=== PATIENT | male | born 1985 | race Caucasian/White ===

== ENCOUNTER 2019-12-11 14:50 | Outpatient (REF) | payer MEDICARE, MEDICAID, SELFPAY ==
[2019-12-11 16:29] LABS: Free T4 (Free Thyroxine) 1.37 ng/dL (0.71-1.85); Thyroid Stimulating Hormone 0.03 mIU/mL (0.32-4.0)
== END 2019-12-11 14:51 | disposition home or self-care (01) ==
LOC: HO.LAB 14:50
PROVIDERS: PCP Family Medicine; Visit Provider Internal Medicine Endocrinology, Diabetes & Metabolism
DX: E03.8 Other specified hypothyroidism (principal)
CPT/HCPCS: 84439; 84443

== ENCOUNTER 2019-12-27 13:27 | Outpatient (REF) | payer MEDICARE, MEDICAID, SELFPAY ==
[2019-12-27 16:05] LABS: Free T4 (Free Thyroxine) 1.39 ng/dL (0.71-1.85); Thyroid Stimulating Hormone 0.01 uIU/mL (0.32-4.0)
[2019-12-28 10:52] LABS: Triiodothyronine T3 Total 111 ng/dL (76-181)
[2019-12-31 15:02] LABS: Thyrotropin Receptor Antibody 10.96 IU/L (<=2.00)
[2020-01-01 15:07] LABS: Thyroid Stimulating Immunoglob 399 % baseline (<140)
== END 2019-12-27 13:28 | disposition home or self-care (01) ==
LOC: HO.LAB 13:27
PROVIDERS: PCP Family Medicine; Visit Provider Internal Medicine Endocrinology, Diabetes & Metabolism
DX: E06.3 Autoimmune thyroiditis (principal)
CPT/HCPCS: 36415; 83520; 84439; 84443; 84445; 84480

== ENCOUNTER 2020-01-23 10:01 | Outpatient (REF) | payer MEDICARE, MEDICAID, SELFPAY ==
[2020-01-23 14:51] LABS: Free T4 (Free Thyroxine) 0.77 ng/dL (0.71-1.85); Thyroid Stimulating Hormone 2.06 uIU/mL (0.32-4.0)
[2020-01-25 01:42] LABS: Triiodothyronine T3 Total 107 ng/dL (76-181)
== END 2020-01-23 10:02 | disposition home or self-care (01) ==
LOC: HO.LAB 10:01
PROVIDERS: PCP Family Medicine; Visit Provider Internal Medicine Endocrinology, Diabetes & Metabolism
DX: E06.2 Chronic thyroiditis with transient thyrotoxicosis (principal)
CPT/HCPCS: 84439; 84443; 84480

== ENCOUNTER → 2020-01-24 13:55 | Outpatient (BNVA) | payer MEDICARE, MEDICAID, SELFPAY | PROVIDERS: PCP Family Medicine; Visit Provider Internal Medicine Endocrinology, Diabetes & Metabolism | DX: E06.3 Autoimmune thyroiditis (principal); E05.00 Thyrotoxicosis with diffuse goiter without thyrotoxic crisis or storm; E55.9 Vitamin D deficiency, unspecified | CPT/HCPCS: 99212 ==

== ENCOUNTER 2020-03-04 11:37 | Outpatient (REF) | payer MEDICARE, MEDICAID, SELFPAY ==
[2020-03-04 13:17] LABS: Free T4 (Free Thyroxine) 0.88 ng/dL (0.71-1.85); Thyroid Stimulating Hormone 1.43 uIU/mL (0.32-4.0)
[2020-03-05 06:17] LABS: Triiodothyronine T3 Total 107 ng/dL (76-181)
[2020-03-09 13:03] LABS: FT4 by Equilib. Dialysis 1.1 ng/dL (0.9-2.2)
== END 2020-03-04 11:38 | disposition home or self-care (01) ==
LOC: HO.LAB 11:37
PROVIDERS: PCP Family Medicine; Visit Provider Internal Medicine Endocrinology, Diabetes & Metabolism
DX: E05.00 Thyrotoxicosis with diffuse goiter without thyrotoxic crisis or storm (principal)
CPT/HCPCS: 36415; 84439; 84443; 84480

== ENCOUNTER 2020-03-16 10:10 | Outpatient (REF) | payer MEDICARE, MEDICAID, SELFPAY | END 2020-03-16 10:11 | disposition home or self-care (01) | LOC: HO.LAB 10:10 | PROVIDERS: PCP Family Medicine; Visit Provider Internal Medicine | DX: Z20.822 Contact with and (suspected) exposure to COVID-19 (principal) | CPT/HCPCS: 36415; C9803; U0003 ==

== ENCOUNTER 2020-05-08 10:12 | Outpatient (REF) | payer MEDICARE, MEDICAID, SELFPAY ==
[2020-05-08 11:45] LABS: Free T4 (Free Thyroxine) 1.07 ng/dL (0.71-1.85); Thyroid Stimulating Hormone 0.15 uIU/mL (0.32-4.0)
[2020-05-09 05:51] LABS: Triiodothyronine T3 Total 105 ng/dL (76-181)
== END 2020-05-08 10:13 | disposition home or self-care (01) ==
LOC: HO.LAB 10:12
PROVIDERS: PCP Family Medicine; Visit Provider Internal Medicine Endocrinology, Diabetes & Metabolism
DX: E06.3 Autoimmune thyroiditis (principal)
CPT/HCPCS: 36415; 84439; 84443; 84480

== ENCOUNTER 2020-07-07 13:58 | Outpatient (REF) | payer MEDICARE, MEDICAID, SELFPAY ==
[2020-07-07 15:57] LABS: Free T4 (Free Thyroxine) 0.96 ng/dL (0.71-1.85); Thyroid Stimulating Hormone 0.12 uIU/mL (0.32-4.0)
[2020-07-08 12:11] LABS: Triiodothyronine T3 Total 104 ng/dL (76-181)
== END 2020-07-07 13:59 | disposition home or self-care (01) ==
LOC: HO.LAB 13:58
PROVIDERS: PCP Family Medicine; Visit Provider Internal Medicine Endocrinology, Diabetes & Metabolism
DX: E05.00 Thyrotoxicosis with diffuse goiter without thyrotoxic crisis or storm (principal); E06.3 Autoimmune thyroiditis; E55.9 Vitamin D deficiency, unspecified; Q90.9 Down syndrome, unspecified; C62.92 Malignant neoplasm of left testis, unspecified whether descended or undescended; Z90.79 Acquired absence of other genital organ(s); Z79.899 Other long term (current) drug therapy
CPT/HCPCS: 36415; 84439; 84443; 84480; 99212

== ENCOUNTER → 2020-07-29 09:08 | Outpatient (REF) | payer MEDICARE, MEDICAID, SELFPAY ==
--- NOTE | ~2020-07-29 | NM_ITS ---
EXAMINATION: NM THYROID UPTAKE AND SCAN CLINICAL INFORMATION: Diffuse goiter with thyrotoxicosis. COMPARISON: Thyroid uptake and scan 02/07/2013 TECHNIQUE: Following the oral administration of 89 microcuries of I-123 sodium iodide, thyroid uptake was performed and expressed as a percentage of the administrated dose. Gamma scintillation camera images of the thyroid in the anterior and right and left anterior oblique views were obtained using a pinhole collimator following the administration of 10 mCi Tc-99m pertechnetate. FINDINGS: The uptake is 19.3% at 4 hours and 46.3% at 24 hours. On thyroid scan, there is normal symmetric isotope activity seen in mildly enlarged thyroid lobes. No visible nodule, defect or enlargement seen. NM/NM thyroid w uptake IMPRESSION: Mildly enlarged thyroid gland but normal technetium uptake. Mild increased RAIU uptake measuring 19.3% at 4 hours and 46.3% at 24 hours. On previous exam 02/07/2013, the 4 hour RAIU was 36.9% and 24-hour RAIU uptake was 51.2%. It has improved.
== END ==
LOC: HO.NUCMED 09:08
PROVIDERS: PCP Family Medicine; Visit Provider Internal Medicine Endocrinology, Diabetes & Metabolism
DX: E05.00 Thyrotoxicosis with diffuse goiter without thyrotoxic crisis or storm (principal)
CPT/HCPCS: 78014; A9512; A9516

== ENCOUNTER → 2020-08-13 11:18 | Outpatient (REF) | payer MEDICARE, MEDICAID, SELFPAY ==
--- NOTE | ~2020-08-13 | NM_ITS ---
EXAMINATION: NM THERAPY I-131 CLINICAL INFORMATION: E05.00 - Thyrotoxicosis with diffuse goiter COMPARISON: Nuclear thyroid uptake and scan 07/29/2020 PROCEDURE: Patient identification performed and verified. Patient and family education performed and questions answered. Patient received oral 10.5 mCi iodine-131 in a single capsule at 1140 hours based on dose calculated by Dr. French Galvan. Patient is to follow up with Dr. French Galvan. NM/NM hyperthyroid therapy IMPRESSION: Status post oral radionuclide I-131 therapy, 10.5 mCi.
== END ==
LOC: HO.NUCMED 11:18
PROVIDERS: Visit Provider Internal Medicine Endocrinology, Diabetes & Metabolism
DX: E05.00 Thyrotoxicosis with diffuse goiter without thyrotoxic crisis or storm (principal)
CPT/HCPCS: 79005; A9517

== ENCOUNTER 2020-09-01 12:51 | Outpatient (REF) | payer MEDICARE, MEDICAID, SELFPAY ==
[2020-09-01 14:14] LABS: Free T4 (Free Thyroxine) 1.07 ng/dL (0.71-1.85); Thyroid Stimulating Hormone 0.11 uIU/mL (0.32-4.0)
[2020-09-03 02:42] LABS: Triiodothyronine T3 Total 132 ng/dL (76-181)
== END 2020-09-01 12:52 | disposition home or self-care (01) ==
LOC: HO.LAB 12:51
PROVIDERS: PCP Family Medicine; Visit Provider Internal Medicine Endocrinology, Diabetes & Metabolism
DX: E05.00 Thyrotoxicosis with diffuse goiter without thyrotoxic crisis or storm (principal)
CPT/HCPCS: 36415; 84439; 84443; 84480

== ENCOUNTER 2020-11-02 14:27 | Outpatient (REF) | payer MEDICARE, MEDICAID, SELFPAY ==
[2020-11-02 16:08] LABS: Free T4 (Free Thyroxine) < 0.40 ng/dL (0.71-1.85); Vitamin D 25-OH Total 25.9 ng/mL (>30)
[2020-11-02 19:47] LABS: Thyroid Stimulating Hormone > 100.00 uIU/mL (0.32-4.0)
[2020-11-03 15:21] LABS: Triiodothyronine T3 Total <25 ng/dL (76-181)
== END 2020-11-02 14:28 | disposition home or self-care (01) ==
LOC: HO.LAB 14:27
PROVIDERS: PCP Family Medicine; Referring Provider Family Medicine; Visit Provider Internal Medicine
DX: E05.00 Thyrotoxicosis with diffuse goiter without thyrotoxic crisis or storm (principal); E55.9 Vitamin D deficiency, unspecified
CPT/HCPCS: 36415; 82306; 84439; 84443; 84480

== ENCOUNTER → 2020-11-04 13:38 | Outpatient (BNVA) | payer MEDICARE, MEDICAID, SELFPAY | PROVIDERS: PCP Family Medicine; Visit Provider Internal Medicine | DX: E89.0 Postprocedural hypothyroidism (principal); E55.9 Vitamin D deficiency, unspecified; E05.00 Thyrotoxicosis with diffuse goiter without thyrotoxic crisis or storm | CPT/HCPCS: 99212 ==

== ENCOUNTER 2020-12-10 13:26 | Outpatient (REF) | payer MEDICARE, MEDICAID, SELFPAY ==
--- NOTE | ~2020-12-10 | US_ITS ---
EXAMINATION: US THYROID CLINICAL INFORMATION: Hypothyroidism. Graves' disease. Theodora's thyroiditis COMPARISON: Nuclear medicine thyroid scan with uptake 07/30/2020 TECHNIQUE: Linear transducer cottrell-scale and color Doppler examination with attention to the region of the thyroid. FINDINGS: SIZE: Measurements of the thyroid lobes and nodules are given in sagittal, anteroposterior and transverse dimensions respectively. Right Thyroid Lobe: 3.6 x 1 x 1.1 cm, volume 2.0 mL. Parenchyma: The gland echotexture is homogeneous. Thyroid vascularity is normal. Left Thyroid Lobe: 3.3 x 1.1 x 1.1 cm, volume 2.0 mL. Parenchyma: The gland echotexture is homogeneous. Thyroid vascularity is normal. Isthmus: 0.24 cm in maximum AP dimension. No focal thyroid nodule is seen. NODES: There is a right cervical lymph node adjacent to the thyroid gland. Appears diffusely hypoechoic with loss of echogenic fatty hilum. This demonstrates central hilar flow. This is slightly enlarged and measures 1.5 x 0.6 x 1.4 cm in sagittal, AP and transverse dimension. US/US thyroid IMPRESSION: Small thyroid gland. No nodule seen. Slightly enlarged abnormal appearing right cervical lymph node adjacent to the thyroid gland with loss of normal fatty hilum.
== END 2020-12-10 13:27 | disposition home or self-care (01) ==
LOC: HO.US 13:26
PROVIDERS: PCP Family Medicine; Visit Provider Internal Medicine
DX: E06.3 Autoimmune thyroiditis (principal)
CPT/HCPCS: 76536

== ENCOUNTER 2020-12-18 11:08 | Outpatient (REF) | payer MEDICARE, MEDICAID, SELFPAY ==
[2020-12-18 12:28] LABS: Albumin Level 4.3 g/dL (3.5-5.0); Phosphorus 4.1 mg/dL (2.7-4.5)
[2020-12-18 12:55] LABS: Free T4 (Free Thyroxine) 0.92 ng/dL (0.71-1.85); Thyroid Stimulating Hormone 51.87 uIU/mL (0.32-4.0); Vitamin D 25-OH Total 28.2 ng/mL (>30)
[2020-12-21 14:31] LABS: Calcium (PTHI) 9.4 mg/dL (8.6-10.3); PTHI 25 pg/mL (14-64)
[2020-12-23 01:51] LABS: Thyroglobulin Antibodies 17 IU/mL (< or = 1); Thyroid Peroxidase Antibodies >900 IU/mL (<9)
[2020-12-23 16:12] LABS: Thyroid Stimulating Immunoglob 297 % baseline (<140)
[2020-12-24 14:35] LABS: Thyrotropin Receptor Antibody 7.79 IU/L (<=2.00)
== END 2020-12-18 11:09 | disposition home or self-care (01) ==
LOC: HO.LAB 11:08
PROVIDERS: PCP Family Medicine; Visit Provider Internal Medicine
DX: E06.3 Autoimmune thyroiditis (principal); E55.9 Vitamin D deficiency, unspecified; E89.0 Postprocedural hypothyroidism
CPT/HCPCS: 36415; 82040; 82306; 83520; 83970; 84100; 84439; 84443; 84445; 86376; 86800

== ENCOUNTER 2021-01-29 10:59 | Outpatient (REF) | payer MEDICARE, MEDICAID, SELFPAY ==
[2021-01-29 12:30] LABS: Free T4 (Free Thyroxine) 1.07 ng/dL (0.71-1.85); Thyroid Stimulating Hormone 3.96 uIU/mL (0.32-4.0)
== END 2021-01-29 11:00 | disposition home or self-care (01) ==
LOC: HO.LAB 10:59
PROVIDERS: PCP Family Medicine; Visit Provider Internal Medicine
DX: E89.0 Postprocedural hypothyroidism (principal)
CPT/HCPCS: 36415; 84439; 84443

== ENCOUNTER 2021-02-25 13:34 | Outpatient (REF) | payer MEDICARE, MEDICAID, SELFPAY ==
[2021-02-25 16:03] LABS: Binax Internal Control QC Valid; Binax Now Covid-19 Ag Negative (Negative)
== END 2021-02-25 13:35 | disposition home or self-care (01) ==
LOC: HO.LAB 13:34
PROVIDERS: Visit Provider Internal Medicine
DX: Z20.822 Contact with and (suspected) exposure to COVID-19 (principal)
CPT/HCPCS: 36415; C9803

== ENCOUNTER 2021-03-12 11:33 | Outpatient (REF) | payer MEDICARE, MEDICAID, SELFPAY ==
[2021-03-12 12:44] LABS: Thyroid Stimulating Hormone 1.62 uIU/mL (0.32-4.0)
== END 2021-03-12 11:34 | disposition home or self-care (01) ==
LOC: HO.LAB 11:33
PROVIDERS: PCP Family Medicine; Visit Provider Internal Medicine
DX: E89.0 Postprocedural hypothyroidism (principal)
CPT/HCPCS: 36415; 84439; 84443

== ENCOUNTER → 2021-03-22 13:04 | Outpatient (REF) | payer MEDICARE, MEDICAID, SELFPAY ==
--- NOTE | 2021-03-22 13:10 | ECG_ITS ---
Hook-up date: 2021-03-22 13:40:00 Duration: 25:12:00 Test Indications: UNSPEC BRADYCARDIA Medications: 53604 QRS complexes * Ventricular ectopics which represent % of total QRS comp. 2 Supraventricular ectopics which represent <1 % of total QRS comp. * Paced QRS complexs which represent % of total QRS comp. VENTRICULAR ECTOPY * Isolated * Bigeminal Cycles * Couplets * Runs * Beats in Runs * Beats LONGEST at * BPM at :: -- * Beats FASTEST at * BPM at :: -- SUPRAVENTRICULAR ECTOPY 2 Isolated 0 Couplets 0 Runs 0 Beats in Runs * Beats LONGEST at * BPM at :: -- * Beats FASTEST at * BPM at :: -- HEART RATES 44 MIN at 03:40:05 2021-03-23 61 AVG 107 MAX at 11:59:42 2021-03-23 LONGEST RR 1.5040 secs at 03:40:04 2021-03-23 S-T LEVELS Channel 1 - 128 mm at 13:40:00 2021-03-22 - 128 mm at 13:40:00 2021-03-22 Channel 2 - 128 mm at 13:40:00 2021-03-22 - 128 mm at 13:40:00 2021-03-22 Channel 3 - 128 mm at 03:25:91 -- - 128 mm at 03:25:91 Underlying rhythm is sinus; Average ventricular rate 61/min; range 44-107/min; About 59% of the time, rate <60/min; No significant pauses; No significant tachyarrhythmias; Overall unremarkable. Referred By: Mary Jo Kaplan Overread By: AMBER AGGARWAL
== END ==
LOC: HO.CARD 13:04
PROVIDERS: Visit Provider Family Medicine
DX: R00.1 Bradycardia, unspecified (principal)
CPT/HCPCS: 93225; 93226

== ENCOUNTER → 2021-04-15 14:13 | Outpatient (BNVA) | payer MEDICARE, MEDICAID, SELFPAY | PROVIDERS: PCP Family Medicine; Visit Provider Internal Medicine | DX: E89.0 Postprocedural hypothyroidism (principal); E55.9 Vitamin D deficiency, unspecified; E05.00 Thyrotoxicosis with diffuse goiter without thyrotoxic crisis or storm | CPT/HCPCS: 99212 ==

== ENCOUNTER 2021-07-23 10:48 | Outpatient (REF) | payer MEDICARE, MEDICAID, SELFPAY ==
[2021-07-23 12:16] LABS: Thyroid Stimulating Hormone 1.74 uIU/mL (0.32-4.0); Vitamin D 25-OH Total 28.5 ng/mL (>30)
== END 2021-07-23 10:49 | disposition home or self-care (01) ==
LOC: HO.LAB 10:48
PROVIDERS: PCP Family Medicine; Visit Provider Internal Medicine
DX: E89.0 Postprocedural hypothyroidism (principal); E05.00 Thyrotoxicosis with diffuse goiter without thyrotoxic crisis or storm; E55.9 Vitamin D deficiency, unspecified
CPT/HCPCS: 36415; 82306; 84439; 84443

== ENCOUNTER → 2021-07-26 13:28 | Outpatient (BNVA) | payer MEDICARE, MEDICAID, SELFPAY | PROVIDERS: PCP Family Medicine; Visit Provider Internal Medicine | DX: E89.0 Postprocedural hypothyroidism (principal); E55.9 Vitamin D deficiency, unspecified; E05.00 Thyrotoxicosis with diffuse goiter without thyrotoxic crisis or storm | CPT/HCPCS: Q3014 ==

== ENCOUNTER 2021-10-04 12:05 | Outpatient (REF) | payer MEDICARE, MEDICAID, SELFPAY ==
--- NOTE | ~2021-10-04 | US_ITS ---
EXAMINATION: US THYROID CLINICAL INFORMATION: Thyrotoxicosis with diffuse goiter without thyrotoxic crisis or storm. COMPARISON: Thyroid ultrasound 12/10/2020. TECHNIQUE: Linear transducer grayscale and color Doppler examination with attention to the region of the thyroid. FINDINGS: SIZE: Measurements of the thyroid lobes and nodules are given in sagittal, anteroposterior and transverse dimensions respectively. Right Thyroid Lobe: 3.4 x 0.7 x 1.0 cm, volume 1.2 mL. Previously 3.6 x 1.0 x 1.1 cm, volume 2.0 mL. Parenchyma: The gland echotexture is heterogeneous. Thyroid vascularity is normal. Left Thyroid Lobe: 3.2 x 0.7 x 1.2 cm, volume 1.4 mL. Previously 3.3 x 1.1 x 1.1 cm, volume 3.0 mL. Parenchyma: The gland echotexture is heterogeneous. Thyroid vascularity is normal. Isthmus: 0.2 cm in maximum AP dimension. Previously 0.2 cm. No focal thyroid nodule is seen. NODES: There are bilateral cervical lymph nodes. There is a 1.7 x 0.4 x 1.3 cm right cervical lymph node. This is diffusely hypoechoic with normal hilar flow. This measured 1. 5.6 x 1.4 cm on previous exam. There is a newly appreciated left cervical lymph node. This measures 1.5 x 0.4 x 0.7 cm. The is diffusely hypoechoic with normal hilar flow. US/US thyroid IMPRESSION: Small heterogeneous thyroid gland. No focal nodule. Bilateral cervical lymphadenopathy.
== END 2021-10-04 12:06 | disposition home or self-care (01) ==
LOC: HO.US 12:05
PROVIDERS: Visit Provider Internal Medicine
DX: E05.00 Thyrotoxicosis with diffuse goiter without thyrotoxic crisis or storm (principal)
CPT/HCPCS: 76536

== ENCOUNTER 2021-11-29 13:23 | Emergency (ER) | payer MEDICARE, MEDICAID, SELFPAY ==
[2021-11-29 13:50] VITALS: BP 124/73; PULSE 60; RESP 16; TEMP 36.6; O2SAT 98; BMI 32.0
--- NOTE | 2021-11-29 13:59 | ECG_ITS ---
Test Reason : RAPID HEART RATE Blood Pressure : / mmHG Vent. Rate : 061 BPM Atrial Rate : 061 BPM P-R Int : 158 ms QRS Dur : 096 ms QT Int : 396 ms P-R-T Axes : 040 044 035 degrees QTc Int : 398 ms Normal sinus rhythm Normal ECG No previous ECGs available Referred By: Fermín Edwards Electronically Signed By:TITO GUERRA MD
[2021-11-29 14:24] LABS: MANUAL DIFF FLAG NO
[2021-11-29 14:26] LABS: Basophils Absolute Auto 0.1 X10*3/uL (0.0-0.2); Basophils Percent Auto 1.1 % (0-2); Eosinophils Absolute Auto 0.2 X10*3/uL (0.0-0.4); Eosinophils Percent Auto 3.7 % (0-4); Hemoglobin 15.1 g/dl (14.0-18.0); Imm Gran Abs Auto 0.01 X10*3/uL (0.00-0.03); Imm Gran Pct Auto 0.2 % (0.0-0.4); Lymphocytes Absolute Auto 1.4 X10*3/uL (1.2-4.9); Lymphocytes Percent Auto 25.7 % (20-40); Mean Corpuscular HGB Conc 33.6 g/dl (31.0-36.0); Mean Corpuscular Hemoglobin 29.7 pg (27.0-33.0); Mean Corpuscular Volume 88.6 fL (80.0-98.0); Mean Platelet Volume 10.1 fL (9.4-12.4); Monocytes Absolute Auto 0.5 X10*3/uL (0.1-1.2); Monocytes Percent Auto 9.6 % (2-11); Neutrophils Absolute Auto 3.2 x10*3/uL (2.0-8.3); Neutrophils Percent Auto 59.7 % (45-73); Platelet Count 151 X10*3/uL (160-400); Red Blood Count 5.08 X10*6/uL (4.60-5.80); Red Cell Distribution Width 13.8 % (11.0-16.0); White Blood Count 5.3 X10*3/uL (4.8-10.8)
[2021-11-29 14:40] LABS: Anion Gap 14 (12-20); Blood Urea Nitrogen 15 mg/dL (9-16); Carbon Dioxide 30 mmol/L (22-29); Chloride 101 mmol/L (96-108); Creatinine Clr Calc Pharmacy 89.7; Estimated Glomerular Filt Rate > 60; Glucose Random 91 mg/dL (60-115); Potassium 3.9 mmol/L (3.3-5.1); Sodium 141 mmol/L (135-145)
== END 2021-11-29 23:45 | disposition left against medical advice (07) ==
PROVIDERS: Emergency Medicine; Emergency Provider Emergency Medicine; PCP Family Medicine
DX: R00.2 Palpitations (principal)
CPT/HCPCS: 36415; 80048; 85025; 93005; 99283

== ENCOUNTER 2022-01-27 10:33 | Outpatient (REF) | payer MEDICARE, MEDICAID, SELFPAY ==
[2022-01-27 13:06] LABS: Free T4 (Free Thyroxine) 1.08 ng/dL (0.71-1.85); Thyroid Stimulating Hormone 0.88 uIU/mL (0.32-4.0); Vitamin D 25-OH Total 30.4 ng/mL (>30)
== END 2022-01-27 10:34 | disposition home or self-care (01) ==
LOC: HO.LAB 10:33
PROVIDERS: PCP Family Medicine; Visit Provider Internal Medicine
DX: E05.00 Thyrotoxicosis with diffuse goiter without thyrotoxic crisis or storm (principal); E89.0 Postprocedural hypothyroidism; E55.9 Vitamin D deficiency, unspecified
CPT/HCPCS: 36415; 82306; 84439; 84443

== ENCOUNTER → 2022-01-31 13:47 | Outpatient (BNVA) | payer MEDICARE, MEDICAID, SELFPAY | PROVIDERS: PCP Family Medicine; Visit Provider Internal Medicine | DX: E89.0 Postprocedural hypothyroidism (principal); E55.9 Vitamin D deficiency, unspecified; E05.00 Thyrotoxicosis with diffuse goiter without thyrotoxic crisis or storm; Z79.899 Other long term (current) drug therapy | CPT/HCPCS: 99212 ==

== ENCOUNTER → 2022-04-04 10:18 | Outpatient (BNVA) | payer MEDICARE, MEDICAID, SELFPAY | PROVIDERS: PCP Family Medicine; Referring Provider Family Medicine; Visit Provider Internal Medicine | DX: Q90.9 Down syndrome, unspecified (principal) | CPT/HCPCS: 99202 ==

== ENCOUNTER → 2022-04-06 12:32 | Outpatient (REF) | payer MEDICARE, MEDICAID, SELFPAY ==
--- NOTE | 2022-04-06 12:45 | CA_ITS ---
Transesophageal Echocardiogram Patient (Last, First, Middle): Jigar Yeboah, Gender: Male Date of : 1985 Age: 36 Procedure Date: 04/06/2022 Procedure Type: Transesophageal Echocardiogram Location: OP Height: 152.4 cm Weight: 58.97 kg BSA: 1.55 m2 Heart Rate: bpm BP: 122 / 60 mmHg Design Drafter: Referring MD: Dakota Macias MD Pelota Maker: Nico Logan MD Symptoms: Q90.9 - Down syndrome, unspecified Conclusion: ??? Essentially normal study Findings Left Ventricle Normal left ventricular size, thickness, and systolic function. The visually estimated ejection fraction is between 60-65%. Diastolic function is normal for age. Right Ventricle Normal right ventricular cavity size and systolic function. Atria Both atria are normal in size. There is no evidence of interatrial shunt. Aortic Valve Normal aortic valve structure and function. There is no aortic valve stenosis. There is no aortic valve regurgitation. Mitral Valve Normal mitral valve structure and function. There is trace mitral valve regurgitation. There is no mitral valve stenosis. Pulmonic Valve The pulmonic valve is likely normal. Tricuspid Valve Normal tricuspid valve structure. There is mild tricuspid valve regurgitation. The right ventricular systolic pressure is normal. The right ventricular systolic pressure is 26 mmHg. Normal right atrial pressure. There is no evidence of pulmonary hypertension. Great Vessels All visible segments of the aorta are normal in size. The pulmonary artery was not well visualized. Venous The inferior vena cava is normal in size and collapses greater than 50% with inspiration. Pericardium/Pleural There is no evidence of pericardial effusion. Prior Study Comparison No prior study available for comparison. Measurements 2D Linear Measurements IVSd: 0.82 0.6-0.9/0.6-1.0 cm LVIDd: 3.82 3.9-5.3/4.2-5.9 cm LVIDd Index: 2.46 2.4-3.2/2.2-3.1 cm/m2 LVIDs: 2.69 2.0-3.6 cm LVPWd: 0.88 0.7-1.1 cm Ao Root: 2.50 2.1-3.5 cm LA Diam: 2.70 2.7-3.8/3.0-4.0 cm LAIDs Index: 1.74 1.5-2.3 cm/m2 LV Mass: 117.43 67-162/88-224 g LV Mass Index: 75.76 43-95/49-115 g/m2 LVOT Diam: 2.00 3.0+(-)1.3 cm Mitral Valve MV Pk E: 1.18 MV PK A: 0.42 MV Decel Time: 278.00 E/A: 2.80 E'Lateral: 11.10 E'Medial: 9.46 E/E' Med: 12.50 E/E' Lat: 10.60 PHT: 81.00 MVA PHT: 2.72 Decel Coamo: 4.24 Aortic Valve AoV Pk Jed: 1.28 AoV Mn Jed: 0.83 AoV VTI: 0.32 AoV Pk Grad: 7.00 Aov Mn Grad: 3.00 NADYA Cont.VTI: 1.85 LVOT LVOT Pk Jed: 0.87 LVOT Mn Jed: 0.52 LVOT VTI: 0.19 LVOT Pk Grad: 3.00 LVOT Mn Grad: 1.00 LVOT Diam: 2.00 LVOT Area: 3.14 Diastolic Function MV Pk E: 1.18 MV Pk A: 0.42 E/A: 2.80 E'Medial: 9.46 E/E' Med: 12.50 E' Laterial: 11.10 E/E' Lat: 10.60 Right Ventricle TAPSE (mm): 24.00 Tricuspid Valve TR Pk Jed: 2.42 TR Pk Grad: 23.00 RA Press: 3.00 RVSP: 26.00 Great Vessels Aorta Ao Root-2D: 2.50 2.0-3.7 cm Ao Asc: 2.80 2.1-3.4 cm Pulmonary Valve PV Pk Jed: 1.17 Peak PV Grad: 5.00 Updated by Nico Logan on 02:34 PM with Status of Final Nico Logan MD electronically signed on 04/06/2022 2:34:28 PM with status of Final
== END ==
LOC: HO.CARD 12:32
PROVIDERS: PCP Family Medicine; Visit Provider Internal Medicine
DX: Q90.9 Down syndrome, unspecified (principal)
CPT/HCPCS: 93306

== ENCOUNTER 2022-04-28 11:44 | Outpatient (REF) | payer MEDICARE, MEDICAID, SELFPAY ==
[2022-04-28 14:01] LABS: Appearance Urine Clear; Color Urine Yellow; Glucose Urine UA Negative (Negative); Leukocyte Esterase Urine Negative (Negative); Nitrite Urine Negative (Negative); PH 5.5 (5.0-9.0); Specific Gravity - Urine 1.015 (1.005-1.025); Urine Blood Negative (Negative); Urine Ketones Negative (Negative); Urine Protein Negative (Neg-Trace)
== END 2022-04-28 11:45 | disposition home or self-care (01) ==
LOC: HO.LAB 11:44
PROVIDERS: Absent Provider Family Medicine; PCP Family Medicine; Visit Provider Internal Medicine Medical Oncology
DX: C62.10 Malignant neoplasm of unspecified descended testis (principal); R30.0 Dysuria
CPT/HCPCS: 81003; 87086

== ENCOUNTER 2023-03-13 11:24 | Outpatient (REF) | payer MEDICARE, MEDICAID, SELFPAY ==
[2023-03-13 11:49] LABS: MANUAL DIFF FLAG NO
[2023-03-13 12:44] LABS: Basophils Percent Auto 0.9 % (0-2); Eosinophils Absolute Auto 0.1 X10*3/uL (0.0-0.4); Eosinophils Percent Auto 1.6 % (0-4); Hematocrit 43.7 % (42.0-52.0); Hemoglobin 14.4 g/dl (14.0-18.0); Imm Gran Abs Auto 0.02 X10*3/uL (0.00-0.03); Imm Gran Pct Auto 0.5 % (0.0-0.4); Lymphocytes Absolute Auto 1.4 X10*3/uL (1.2-4.9); Lymphocytes Percent Auto 30.4 % (20-40); Mean Corpuscular Hemoglobin 29.8 pg (27.0-33.0); Mean Corpuscular Volume 90.5 fL (80.0-98.0); Mean Platelet Volume 9.9 fL (9.4-12.4); Monocytes Absolute Auto 0.4 X10*3/uL (0.1-1.2); Monocytes Percent Auto 8.1 % (2-11); Neutrophils Absolute Auto 2.6 x10*3/uL (2.0-8.3); Neutrophils Percent Auto 58.5 % (45-73); Platelet Count 186 X10*3/uL (160-400); Red Blood Count 4.83 X10*6/uL (4.60-5.80); Red Cell Distribution Width 13.9 % (11.0-16.0); White Blood Count 4.4 X10*3/uL (4.8-10.8)
[2023-03-13 12:46] LABS: Estimated Average Glucose 108 mg/dL; Hemoglobin A1c % 5.4 % (<6.0)
[2023-03-13 13:18] LABS: Alanine Aminotransferase 39 U/L (0-40); Alkaline Phosphatase 71 U/L (39-117); Anion Gap 9 (12-20); Aspartate Amino Transferase 22 U/L (5-37); Bilirubin Direct 0.2 mg/dL (0.0-0.5); Bilirubin Total 0.7 mg/dL (0.0-1.0); Blood Urea Nitrogen 19 mg/dL (9-16); Carbon Dioxide 32 mmol/L (22-29); Chloride 101 mmol/L (96-108); Cholesterol 203 mg/dL (<200); Estimated Glomerular Filt Rate > 60; Glucose Random 93 mg/dL (60-115); HDL Cholesterol 40 mg/dL (>40); LDL Cholesterol Calculated 140 mg/dL (<100); Potassium 3.5 mmol/L (3.3-5.1); Sodium 138 mmol/L (135-145); Total Protein 7.4 g/dL (6.5-8.0); Triglycerides 119 mg/dL (<150)
[2023-03-13 13:35] LABS: Free T4 (Free Thyroxine) 1.08 ng/dL (0.71-1.85); Thyroid Stimulating Hormone 0.89 uIU/mL (0.32-4.0); Vitamin D 25-OH Total 30.8 ng/mL (>30)
== END 2023-03-13 11:25 | disposition home or self-care (01) ==
LOC: HO.LAB 11:24
PROVIDERS: Absent Provider Family Medicine; PCP Family Medicine; Visit Provider Internal Medicine Endocrinology, Diabetes & Metabolism
DX: E03.9 Hypothyroidism, unspecified (principal); R79.9 Abnormal finding of blood chemistry, unspecified
CPT/HCPCS: 36415; 80048; 80061; 80076; 82306; 83036; 84439; 84443; 85025

== ENCOUNTER 2023-03-15 13:02 | Outpatient (AMB) | payer MEDICARE, MEDICAID, SELFPAY ==
[2023-03-15 13:27] VITALS: BP 90/52; PULSE 65; BMI 33.2
--- NOTE | 2023-03-15 13:27 | MHC.OFFVIS ---
Intake Vital Signs 03/15/23 13:27 Height 5 ft Weight 170 lb 3.15 oz BMI 33.2 BP 90/52 L Blood Pressure Location Lt brachial Position Sitting Pulse 65 Pulse Source Pulse Oximeter Intake Visit Reasons: F/U Hypothyroidism-lvm Intake Note: Patient last seen by Dr. Yang on 02/10/22. Patient present today for Hypothyroidism follow up visit. Training Officer Required: Yes Training Officer Language: Personal Property Appraiser Name: Brynn medical staff Information Interpreted: non-clinical & clinical Accompanied by: Mother Allergies No Known Allergies [No Known Allergies*] Allergy (Verified 03/15/23 13:32) Medication List - Last Reconciled 03/15/23 by Bradford Thomas MD cholecalciferol (vitamin D3) 50 mcg PO DAILY clotrimazole 1% appl topical BID fluticasone propionate 50 mcg/actuation sprays intranasal ketoconazole 2% topical levothyroxine 100 mcg PO DAILY nystatin topical BID HPI HPI Comments History of Present Illness Details 37 YO Male with a PMHx of Grave's disease, s/p I131 ablation now with postablative hypothyroidism who is seen in F/U. He was previously followed by Dr. Ulloa. The patient last saw Dr. Yang on 01/31/2022 He has a history of Grave's disease, and underwent I131 ablation 08/13/2020 with 10.5 millicurries of I131. He subsequently developed hypothyroidism. He was started on levothyroxine 100 mcg PO daily and TSH is now at goal. History is provided independently by his Mother. He has a developmental delay. He reports feeling well and has no complaints. Labs: Laboratory Tests 01/27/22 10:39 25-OH Vitamin D To savanah 30.4 TSH 0.88 Free T4 1.08 No sx of hypothyroidism or hyperthyroidism [facility] Medical History (Updated 04/04/22 @ 10:53 by Dakota Macias MD) Down's syndrome Postablative hypothyroidism Vitamin D deficiency Graves disease Theodora's disease Surgical History History of orchiectomy Family History Father Unknown family medical history Adoption of child Mother Unknown family medical history Adoption of child Paternal Grandfather Heart attack Social History Household Members: Adopted Family Alcohol intake: never Patient Tobacco Use Status: Never used Tobacco Physical Exam Vital Signs: Last Vital Signs Pulse 65 03/15/23 13:27 BP 90/52 L 03/15/23 13:27 BMI result Body Mass Index 33.2 Const Other: Thyroid gland is decrease in size weighs about 5 g . There are no thyroid nodules palpated Assessment & Plan Assessment & Plan (1) Postablative hypothyroidism: Code(s): E89.0 - Postprocedural hypothyroidism Plan: This is a 37-year-old male with a history of post-ablative hypothyroidism be replaced with 100 mcg levothyroxine. He appears to be clinically biochemically euthyroid. Plan is to continue the current therapy. At this point, patient returned to the care of his primary care provider returned back to endocrinology as needed Coding Level of Care Code Est Pt Level 3 (84486) Diagnoses Postablative hypothyroidism E89.0
== END 2023-03-15 13:50 | disposition home or self-care (01) ==
PROVIDERS: PCP Family Medicine; Visit Provider Internal Medicine Endocrinology, Diabetes & Metabolism
DX: E89.0 Postprocedural hypothyroidism (principal)
CPT/HCPCS: 99213

== ENCOUNTER → 2023-03-15 13:02 | Outpatient (BNVA) | payer MEDICARE, MEDICAID, SELFPAY | PROVIDERS: Visit Provider Internal Medicine Endocrinology, Diabetes & Metabolism | DX: E89.0 Postprocedural hypothyroidism (principal) | CPT/HCPCS: 99212 ==

== ENCOUNTER 2023-08-17 10:58 | Outpatient (REF) | payer MEDICARE, MEDICAID, SELFPAY ==
[2023-08-17 13:35] LABS: MANUAL DIFF FLAG NO
[2023-08-17 14:16] LABS: Basophils Absolute Auto 0.1 X10*3/uL (0.0-0.2); Eosinophils Absolute Auto 0.1 X10*3/uL (0.0-0.4); Hematocrit 46.6 % (42.0-52.0); Hemoglobin 15.2 g/dl (14.0-18.0); Imm Gran Abs Auto 0.02 X10*3/uL (0.00-0.03); Imm Gran Pct Auto 0.4 % (0.0-0.4); Lymphocytes Absolute Auto 1.4 X10*3/uL (1.2-4.9); Lymphocytes Percent Auto 28.9 % (20-40); Mean Corpuscular HGB Conc 32.6 g/dl (31.0-36.0); Mean Corpuscular Volume 91.9 fL (80.0-98.0); Mean Platelet Volume 10.3 fL (9.4-12.4); Monocytes Absolute Auto 0.3 X10*3/uL (0.1-1.2); Monocytes Percent Auto 7.1 % (2-11); Neutrophils Percent Auto 61.6 % (45-73); Platelet Count 189 X10*3/uL (160-400); Red Blood Count 5.07 X10*6/uL (4.60-5.80); Red Cell Distribution Width 14.1 % (11.0-16.0); White Blood Count 4.8 X10*3/uL (4.8-10.8)
[2023-08-17 14:52] LABS: Alanine Aminotransferase 24 U/L (0-40); Albumin Level 4.2 g/dL (3.5-5.0); Alkaline Phosphatase 75 U/L (39-117); Aspartate Amino Transferase 20 U/L (5-37); Bilirubin Direct 0.2 mg/dL (0.0-0.5); Bilirubin Total 0.5 mg/dL (0.0-1.0); Total Protein 7.6 g/dL (6.5-8.0)
[2023-08-17 15:10] LABS: Free T4 (Free Thyroxine) 1.18 ng/dL (0.71-1.85); Thyroid Stimulating Hormone 2.93 uIU/mL (0.32-4.0)
== END 2023-08-17 10:59 | disposition home or self-care (01) ==
LOC: HO.HHCL 10:58
PROVIDERS: Visit Provider Family Medicine
DX: E03.9 Hypothyroidism, unspecified (principal); B35.1 Tinea unguium
CPT/HCPCS: 36415; 80076; 84439; 84443; 85025

== ENCOUNTER 2024-01-05 11:47 | Outpatient (REF) | payer MEDICARE, MEDICAID, SELFPAY ==
[2024-01-05 13:49] LABS: Free T4 (Free Thyroxine) 1.19 ng/dL (0.71-1.85); Thyroid Stimulating Hormone 0.83 uIU/mL (0.32-4.0)
[2024-01-05 13:56] LABS: Vitamin D 25-OH Total 47.9 ng/mL (>30)
[2024-01-08 17:48] LABS: Rubeola IgG (Measles) <13.50 AU/mL
[2024-01-08 19:39] LABS: TSpotTB Invalid (Negative)
== END 2024-01-05 11:48 | disposition home or self-care (01) ==
LOC: HO.HHCL 11:47
PROVIDERS: Internal Medicine; Internal Medicine Endocrinology, Diabetes & Metabolism; Visit Provider Internal Medicine
DX: Z00.00 Encounter for general adult medical examination without abnormal findings (principal); Z11.1 Encounter for screening for respiratory tuberculosis; E55.9 Vitamin D deficiency, unspecified; E89.0 Postprocedural hypothyroidism
CPT/HCPCS: 36415; 82306; 84439; 84443; 86481; 86735; 86762; 86765

== ENCOUNTER 2024-08-30 03:31 | Emergency (ER) | payer MEDICARE, MEDICAID, SELFPAY ==
--- OUTSIDE RECORDS SUMMARY | 2024-04-26 10:00 | XMS_ITS ---
Author Organization Bradford Luna III, MD Address [address] [facility] [place] [address] Care Team Providers Care Cloth Seconds Sorter Name Role Phone CASRICHARD ARNOLD Primary Care Provider Bradford Luna [phone] Allergies Allergen (clinical drug ingredient) Drug/Non Drug Allergy documented on EMR Reaction Allergy Type Onset Date Status No Known Drug Allergy Unknown Drug Allergy Active REASON FOR VISIT Follow-up Medications Medication SIG (Take, Route, Frequency, Duration) Notes Start Date End Date Status Vitamin D3 2000 UNIT (Prior Auth: Rx Ref#:[id number]) Oral Active Levothyroxine Sodium 75 MCG Orally Once a day Active Social History Tobacco Use: Social History Observation Description Date Details (start date - stop date) Never Smoker NA - NA Tobacco Use/Smoking Question Answer Notes Patient is a nonsmoker Additional Findings: Tobacco Non-User Aggressive non-smoker Encounters Encounter Location Date Provider Diagnosis Bradford Luna III, MD [address] [place] [address] [place] [address] 04/26/2024 Bradford Luna Malignant neoplasm o f [...] D3 2000 UNIT (Prior Auth: Rx Ref #:[id number]) Oral Levothyroxine Sodium 75 MCG Orally Once a day Next Appt Details Provider Name:Bradford Luna, 05/14/2025 02:00:00 PM, [address] [place] [address] [address], [place], [address], Progress Notes * Alexander GREGORYOB:[birth year] (38 yo M)Acc No.[id number]:04/26/2024 Progress Notes Patient: Jigar FAJARDO Provider: Syed Luna MD :1985 A ge:38 Y S ex:Male Date:04/26/2024 Address:[address] [place], [place] [phone] Pcp:RICHARD MERAZ Subjective: * Chief Complaints: * [...] D3 2000 UNIT Tablet (Prior Auth: Rx Ref#:[id number]) Oral , Medication List reviewed and reconciled [...] 04/26/2024 Generated for Eliceo castañeda/Sun/Ianitting on: 0 08/30/2024 05:03 AM EDT History and Physical Notes * HPI [...]
--- NOTE | ~2024-08-30 | XR_ITS ---
CLINICAL HISTORY: constipation 1 view abdomen Comparison: None provided Findings: Tgslsrak-wt-hofwd amount of stool throughout the colon. No dilated small bowel. No indirect evidence for free air on this supine exam. No abnormal soft tissue calcifications are identified over the bilateral kidneys or expected course of the ureters. Lung bases are clear. No acute bony abnormality. IMPRESSION: Cmxdcxhp-hw-adjvz amount of stool throughout the colon without findings of obstruction. This document has been electronically signed by: Devin Mckenna MD on 08/30/2024 06:35:06
[2024-08-30 03:54] VITALS: BP 99/63; PULSE 54; RESP 18; TEMP 36.7; O2SAT 97; BMI 32.0
[2024-08-30 04:34] LABS: MANUAL DIFF FLAG NO
[2024-08-30 04:35] LABS: Hematocrit 39.0 % (42.0-52.0); Hemoglobin 13.2 g/dl (14.0-18.0); Imm Gran Abs Auto 0.02 X10*3/uL (0.00-0.03); Imm Gran Pct Auto 0.4 % (0.0-0.4); Lymphocytes Absolute Auto 1.6 X10*3/uL (1.2-4.9); Mean Corpuscular HGB Conc 33.8 g/dl (31.0-36.0); Mean Corpuscular Hemoglobin 30.0 pg (27.0-33.0); Mean Corpuscular Volume 88.6 fL (80.0-98.0); NRBC Abs Auto 0.000 X10*3/uL (0.0-0.012); NRBC Pct Auto 0.0 /100WBC (0.0-0.2); Platelet Count 188 X10*3/uL (160-400); Red Blood Count 4.40 X10*6/uL (4.60-5.80); White Blood Count 4.9 X10*3/uL (4.8-10.8)
[2024-08-30 04:51] LABS: Alanine Aminotransferase 30 U/L (0-40); Albumin Level 3.8 g/dL (3.5-5.0); Alkaline Phosphatase 76 U/L (39-117); Anion Gap 11 (12-20); Aspartate Amino Transferase 32 U/L (5-37); Blood Urea Nitrogen 17 mg/dL (9-16); Calcium 8.7 mg/dL (8.4-10.2); Carbon Dioxide 28 mmol/L (22-29); Chloride 105 mmol/L (96-108); Creatinine Clr Calc Pharmacy 102.7; Estimated Glomerular Filt Rate > 60; Lipase 15 U/L (8-78); Magnesium 2.1 mg/dL (1.6-2.6); Potassium 4.2 mmol/L (3.3-5.1); Sodium 140 mmol/L (135-145); Total Protein 6.5 g/dL (6.5-8.0)
--- NOTE | 2024-08-30 05:23 | ED.ABDPAIN ---
HPI - Abdominal Pain General Chief Complaint: Abdominal Pain Stated Complaint: abd pain Time Seen by Provider: 08/30/24 05:16 Source: family Mode of arrival: ambulatory Limitations: no limitations History of Present Illness ED Provider: Dr. Flower Hudson HPI narrative: Patient comes to the emergency room accompanied by his mother. Patient has history of developmental delay and the mother is given the history. According to the patient's mother, patient has history of chronic constipation. Patient takes MiraLax daily but seems that lately it stopped working. Patient complaining of abdominal distention and suprapubic discomfort. Patient denies any chest pain or shortness of breath, no nausea vomiting or diarrhea. Denies hematuria or dysuria. Related Data Home Medications ?Medication ?Instructions ?Recorded ?Confirmed clotrimazole 1 % topical cream appl topical BID 01/24/20 04/04/22 fluticasone propionate 50 spray intranasal 07/07/20 04/04/22 mcg/actuation nasal spray,suspension cholecalciferol (vitamin D3) 50 50 mcg PO DAILY 04/04/22 04/04/22 mcg (2,000 unit) tablet ketoconazole 2 % shampoo topical 04/04/22 04/04/22 nystatin 100,000 unit/gram topical topical BID 04/04/22 04/04/22 cream Previous Rx's ?Medication ?Instructions ?Recorded levothyroxine 100 mcg tablet 100 mcg PO DAILY #90 tabs 11/29/22 lactulose 10 gram oral packet 20 g PO BID PRN laxative effect 08/30/24 #15 ea polyethylene glycol 3350 17 17 g PO BID PRN laxative effect 08/30/24 gram/dose oral powder (Miralax) #238 grams sodium phosphates 19 gram-7 118 ml IL DAILY PRN constipation 08/30/24 gram/118 mL enema (Fleet Enema) #266 mL Allergies Allergy/AdvReac Type Severity Reaction Status Date / Time No Known Allergies (No Known Allergy Verified 08/30/24 03:59 Allergies*) Review of Systems Review of Systems Constitutional : No Weight loss, No Fever, No Chills, No Night Sweats, No Fatigue, No Malaise ENT/Mouth : No Hearing loss, No Ear Pain, No Nasal Congestion, No Sinus Pain, No Hoarseness, No sore throat, No Rhinorrhea, No Swallowing Difficulty Eyes: No Eye Pain, No Swelling, No Redness, No Foreign Body, No Discharge, No Vision Changes Cardiovascular : No Chest Pain, No SOB, No Dyspnea on Exertion, No Orthopnea, No Edema, No Palpitations Respiratory : No Cough, No Sputum, No Wheezing, No Smoke Exposure, No Dyspnea Gastrointestinal : No Nausea, No Vomiting, No Diarrhea, complaining of constipation and abdominal distention Genitourinary : no irregular bleeding, No Dysuria, No Urinary Frequency, No Hematuria, No Urinary Incontinence, No Urgency, No Flank Pain, No Urinary Flow Changes, No Hesitancy Musculoskeletal : No joint pain, No Myalgias, No Joint Swelling Skin : No Skin Lesions, No rash Neuro : No Weakness, No Numbness, No Paresthesias, No Loss of Consciousness, No Dizziness, No Headache Psych : No Anxiety/Panic, No Depression, No SI/HI/AH/VH, No Social Issues, Heme/Lymph: No Bruising, No Bleeding,No Lymphadenopathy Endocrine : No Polyuria, No Polydipsia, No Temperature Intolerance [facility] Past Medical History Medical History Down's syndrome Postablative hypothyroidism Vitamin D deficiency Graves disease Theodora's disease Surgical History History of orchiectomy Family History Family History Father Unknown family medical history Adoption of child Mother Unknown family medical history Adoption of child Paternal Grandfather Heart attack Social History Social History Household Members: Adopted Family Alcohol intake: never Patient Tobacco Use Status: Never used Tobacco Smoked in Last 30 Days: No Use of substances other than those prescribed or required for medical reasons: No Advance Directives: No Advance Directives Information Provided: Yes Do you have a plan to hurt others: No Plan Physical Exam ED Vital Signs: Vital Signs - 24 hr 08/30/24 03:54 Temperature 98.1 F Pulse Rate 54 Respiratory Rate 18 Blood Pressure 99/63 Pulse Oximetry 97 Oxygen Delivery Method Room Air BMI result Body Mass Index 32.0 Const Other: Appearance: Alert. No acute distress Eyes: Pupils equal, round and reactive to light. ENT: Pharynx normal. Neck: Normal inspection. Neck supple. No lymph nodes noted. No crepitus CVS: Normal heart rate and rhythm. Pulses normal. Normal S1 and S2 Respiratory: No respiratory distress. Breath sounds normal. No Wheezing. No rales Abdomen: Soft moderately distended, mild discomfort to palpation in suprapubic area, no flank pain Skin: Skin warm and dry. Normal skin color. Normal skin turgor. Extremities: No lower extremity edema. No Lacerations. No Rash Neuro: Oriented X 3. No motor deficit. No sensory deficit. Moving all extremities. No slurred speech. CN 2 through 12 grossly intact Psych: calm, cooperative, normal affect Course Course Course Narrative: Patient is brought in to the emergency room by his mother, patient has history of constipation, takes MiraLax, no longer working. Patient has not been able to move his while in 4 days. Patient's KUB pending Urinalysis pending Medical Decision Making Medical Decision Making MDM Narrative: KUB does not show any obstruction. However there is a large amount of stool. Discussed with the patient's mother to increase MiraLax to twice a day and increase the amount of p.o. intake. Also, patient was given p.r.n. lactulose if this does not work. Urinalysis negative for UTI Differential Diagnosis Differential Diagnoses: The differential diagnosis associated with the presentation includes (Constipation, small-bowel obstruction, UTI) Lab Data [facility] Lab Attestation statement: I reviewed the patient's lab results. 08/30/24 04:29 08/30/24 04:29 Labs: Lab Results 08/30/24 08/30/24 Range/Units 04:29 06:47 WBC 4.9 (4.8-10.8) X10*3/uL RBC 4.40 L (4.60-5.80) X10*6/uL Hgb 13.2 L (14.0-18.0) g/dl Hct 39.0 L (42.0-52.0) % MCV 88.6 (80.0-98.0) fL MCH 30.0 (27.0-33.0) pg MCHC 33.8 (31.0-36.0) g/dl RDW 13.7 (11.0-16.0) % Plt Count 188 (160-400) X10*3/uL MPV 9.5 (9.4-12.4) fL Immature Gran % (Auto) 0.4 (0.0-0.4) % Neut % (Auto) 55.3 (45-73) % Lymph % (Auto) 32.0 (20-40) % Levy % (Auto) 8.4 (2-11) % Eos % (Auto) 2.9 (0-4) % Baso % (Auto) 1.0 (0-2) % Lymph # (Auto) 1.6 (1.2-4.9) X10*3/uL Levy # (Auto) 0.4 (0.1-1.2) X10*3/uL Eos # (Auto) 0.1 (0.0-0.4) X10*3/uL Baso # (Auto) 0.1 (0.0-0.2) X10*3/uL Abs Immat Gran (auto) 0.02 (0.00-0.03) X10*3/uL Absolute Neuts (auto) 2.7 (2.0-8.3) x10*3/uL Absolute Nucleated RBC 0.000 (0.0-0.012) X10*3/uL Nucleated RBC % (auto) 0.0 (0.0-0.2) /100WBC Sodium 140 (135-145) mmol/L Potassium 4.2 (3.3-5.1) mmol/L Chloride 105 (96-108) mmol/L Carbon Dioxide 28 (22-29) mmol/L Anion Gap 11 L (12-20) BUN 17 H (9-16) mg/dL Creatinine 0.84 (0.5-1.4) mg/dL Estim Creat Clear Calc 102.7 Estimated GFR > 60 Random Glucose 112 (60-115) mg/dL Calcium 8.7 (8.4-10.2) mg/dL Magnesium 2.1 (1.6-2.6) mg/dL Total Bilirubin 0.3 (0.0-1.0) mg/dL AST 32 (5-37) U/L ALT 30 (0-40) U/L Alkaline Phosphatase 76 (39-117) U/L Total Protein 6.5 (6.5-8.0) g/dL Albumin 3.8 (3.5-5.0) g/dL Lipase 15 (8-78) U/L Urine Color Yellow Urine Appearance Clear Urine pH 7.5 (5.0-9.0) Ur Specific [place] 1.020 (1.005-1.025) Urine Protein Negative (Neg-Trace) mg/dL Urine Glucose (UA) Negative (Negative) mg/dL Urine Ketones Negative (Negative) mg/dL Urine Blood Negative (Negative) Urine Nitrite Negative (Negative) Ur Leukocyte Esterase Negative (Negative) Independent Interpretation I performed an independent interpretation of an: Plain X-Ray Radiology Impression Discussion of test interpretation with radiology: I have reviewed the radiologist's reading. Radiologist Impression: Icfchzhl-ng-ioydz amount of stool throughout the colon. No dilated small bowel. No indirect evidence for free air on this supine exam. No abnormal soft tissue calcifications are identified over the bilateral kidneys or expected course of the ureters. Lung bases are clear. No acute bony abnormality. IMPRESSION: Smknllgy-os-gpsdu amount of stool throughout the colon without findings of obstruction Discharge Plan Discharge Clinical Impression: Chronic constipation Patient Disposition: Home, Self-Care Instructions: Constipation (DC), Fleet Enema (ED) Additional Instructions: Increase MiraLax to twice a day. Make sure that you drink plenty of fluids for the medication to work well. If that does not work, you may use the enema. An if that does not work, you may use the lactulose. With all these medications, it is important to drink plenty of fluids. Please follow-up with your primary care physician tomorrow. If you have any worsening or new symptoms, please return to the emergency room or call 911 Prescriptions: New polyethylene glycol 3350 [Miralax] 17 gram/dose powder 17 g PO BID PRN (Reason: laxative effect) Qty: 238 0RF lactulose 10 gram packet 20 g PO BID PRN (Reason: laxative effect) Qty: 15 0RF Fleet Enema 19-7 gram/118 mL enema 118 ml IL DAILY PRN (Reason: constipation) Qty: 266 0RF No Action levothyroxine 100 mcg tablet 100 mcg PO DAILY Qty: 90 2RF clotrimazole 1 % cream topical BID fluticasone propionate 50 mcg/actuation spray,suspension intranasal cholecalciferol (vitamin D3) 50 mcg (2,000 unit) tablet 50 mcg PO DAILY ketoconazole 2 % shampoo topical nystatin 100,000 unit/gram cream topical BID Print Language: Lao
[2024-08-30 06:54] LABS: Appearance Urine Clear; Glucose Urine UA Negative (Negative); PH 7.5 (5.0-9.0); Specific Gravity - Urine 1.020 (1.005-1.025)
[2024-08-30 07:19] VITALS: BP 99/63; PULSE 54; RESP 18; TEMP 36.7; O2SAT 97
== END 2024-08-30 07:20 | disposition home or self-care (01) ==
PROVIDERS: Emergency Provider Emergency Medicine; PCP Family Medicine
DX: K59.09 Other constipation (principal); Q90.9 Down syndrome, unspecified; E06.3 Autoimmune thyroiditis; E05.00 Thyrotoxicosis with diffuse goiter without thyrotoxic crisis or storm; E55.9 Vitamin D deficiency, unspecified; E89.0 Postprocedural hypothyroidism; Z79.899 Other long term (current) drug therapy
CPT/HCPCS: 36415; 74018; 80053; 81003; 83690; 83735; 85025; 99283; 99284

== ENCOUNTER → 2024-08-30 05:22 | Outpatient (BNV) | payer MEDICARE, MEDICAID, SELFPAY | PROVIDERS: Emergency Provider Emergency Medicine; PCP Family Medicine; Visit Provider Radiology Diagnostic Radiology | DX: K59.00 Constipation, unspecified (principal) | CPT/HCPCS: 74018 ==

== ENCOUNTER 2024-10-31 10:18 | Outpatient (REF) | payer MEDICARE, MEDICAID, SELFPAY ==
--- OUTSIDE RECORDS SUMMARY | 2024-04-26 10:00 | XMS_ITS ---
Author Organization Bradford Luna III, MD Address [address] [place] [address] Care Team Providers Care Navy Fighter Pilot Name Role Phone CASRICHARD ARNOLD Primary Care Provider Bradford Luna [phone] Allergies Allergen (clinical drug ingredient) Drug/Non Drug Allergy documented on EMR Reaction Allergy Type Onset Date Status No Known Drug Allergy Unknown Drug Allergy Active REASON FOR VISIT Follow-up Medications Medication SIG (Take, Route, Frequency, Duration) Notes Start Date End Date Status Vitamin D3 2000 UNIT (Prior Auth: Rx Ref#:[id number]) Oral Active Levothyroxine Sodium 75 MCG Orally Once a day Active Social History Tobacco Use: Social History Observation Description Date Details (start date - stop date) Never Smoker NA - NA Tobacco Use/Smoking Question Answer Notes Patient is a nonsmoker Additional Findings: Tobacco Non-User Aggressive non-smoker Encounters Encounter Location Date Provider Diagnosis Bradford Luna III, MD [address] [place] [address] [place] [address] 04/26/2024 Bradford Luna Malignant neoplasm o f [...] D3 2000 UNIT (Prior Auth: Rx Ref #:[id number]) Oral Levothyroxine Sodium 75 MCG Orally Once a day Next Appt Details Provider Name:Bradford Luna, 05/14/2025 03:30:00 PM, [address] [place] [address] [address], [place], [address], Progress Notes * Alexander GREGORYOB:[birth year] (38 yo M)Acc No.[id number]:04/26/2024 Progress Notes Patient: Jigar FAJARDO Provider: Syed Luna MD :1985 A ge:38 Y S ex:Male Date:04/26/2024 Address:[address] [place], [place] [phone] Pcp:RICHARD MERAZ Subjective: * Chief Complaints: * [...] D3 2000 UNIT Tablet (Prior Auth: Rx Ref#:[id number]) Oral , Medication List reviewed and reconciled [...] MD Date: 0 04/26/2024 Generated for Eliceo castañeda/Sun/Ianitting on: 0 10/31/2024 12:55 PM EDT History and Physical Notes * HPI (History [...]
--- OUTSIDE RECORDS SUMMARY | 2024-05-14 10:45 | XMS_ITS ---
Author Organization Bradford Luna III, MD Address [address] [place] [address] Care Team Providers Care Balance Wheel Arm Burnisher Name Role Phone YOLANDAELIOTROSAURARICHARD Primary Care Provider [phone] Bradford Luna [phone] Allergies Allergen (clinical drug ingredient) Drug/Non Drug Allergy documented on EMR Reaction Allergy Type Onset Date Status No Known Drug Allergy Unknown Drug Allergy Active REASON FOR VISIT History of testicular seminoma, Down's syndrome, Hypothyroidism, Obesity Medications Medication SIG (Take, Route, Frequency, Duration) Notes Start Date End Date Status Vitamin D3 2000 UNIT (Prior Auth: Rx Ref#:[id number]) Oral Active Levothyroxine Sodium 75 MCG Orally [...] Date Provider Diagnosis Bradford Luna III, MD [address] [place] [address] [place] [phone] 05/14/2024 Bradford Luna Malignant neoplasm o f [...] D3 2000 UNIT (Prior Auth: Rx Ref #:[id number]) Oral Levothyroxine Sodium 75 MCG Orally Once a day Next Appt Details Follow Up: 1 Year, Reason: O V Provider Name:Bradford Luna, 05/14/2025 03:30:00 PM, [address] [place] [address], [address], Progress Notes * Alexander GREGORYOB:[birth year] (38 yo M)Acc No.[id number]:05/14/2024 Progress Notes Patient: Keena RAMIREZZO Jigar Provider: Syed Luna MD :1985 A ge:38 Y S ex:Male Date:05/14/2024 Address:[address] [place], [place] [id number] Pcp:RICHARD MERAZ Subjective: * Chief Complaints: * [...] D3 2000 UNIT Tablet (Prior Auth: Rx Ref#:[id number]) Oral Medication List reviewed and reconciled with the patientTaking Levothyroxine Sodium 75 MCG Tablet Orally Once a day Taking Vitamin D3 2000 UNIT Tablet (Prior Auth: Rx Ref#:[id number]) Oral Medication List reviewed and reconciled with [...] true * Provider: Syed Luna MD Date: 05/14/2024 Generated for Printi garry/Sun/eTransmitting on: 0 10/31/2024 12:55 PM EDT History [...]
[2024-10-31 11:39] LABS: MANUAL DIFF FLAG NO
[2024-10-31 11:43] LABS: Hematocrit 45.7 % (42.0-52.0); Hemoglobin 15.2 g/dl (14.0-18.0); Imm Gran Abs Auto 0.01 X10*3/uL (0.00-0.03); Imm Gran Pct Auto 0.2 % (0.0-0.4); Lymphocytes Absolute Auto 1.5 X10*3/uL (1.2-4.9); Mean Corpuscular HGB Conc 33.3 g/dl (31.0-36.0); Mean Corpuscular Hemoglobin 29.5 pg (27.0-33.0); Mean Corpuscular Volume 88.6 fL (80.0-98.0); NRBC Abs Auto 0.000 X10*3/uL (0.0-0.012); NRBC Pct Auto 0.0 /100WBC (0.0-0.2); Platelet Count 194 X10*3/uL (160-400); Red Blood Count 5.16 X10*6/uL (4.60-5.80); White Blood Count 4.2 X10*3/uL (4.8-10.8)
[2024-10-31 11:51] LABS: Hemoglobin A1C 147.1864 umol/L; Total Hemoglobin (HGBA1C) 4041.4152 umol/L
[2024-10-31 12:26] LABS: Alanine Aminotransferase 20 U/L (0-40); Albumin Level 4.3 g/dL (3.5-5.0); Alkaline Phosphatase 70 U/L (39-117); Anion Gap 11 (12-20); Aspartate Amino Transferase 23 U/L (5-37); Blood Urea Nitrogen 13 mg/dL (9-16); Calcium 9.1 mg/dL (8.4-10.2); Carbon Dioxide 31 mmol/L (22-29); Chloride 102 mmol/L (96-108); Cholesterol 179 mg/dL (<200); Estimated Glomerular Filt Rate > 60; HDL Cholesterol 38 mg/dL (>40); Potassium 4.0 mmol/L (3.3-5.1); Sodium 140 mmol/L (135-145); Total Protein 7.2 g/dL (6.5-8.0); Triglycerides 107 mg/dL (<150)
[2024-10-31 12:46] LABS: Free T4 (Free Thyroxine) 1.08 ng/dL (0.71-1.85); Thyroid Stimulating Hormone 0.26 uIU/mL (0.32-4.0)
--- OUTSIDE RECORDS SUMMARY | 2024-10-31 12:55 | XMS_ITS | Encounter Summary ---
Author Organization [email or web address] [facility] Address [address] [place] [address] Care Team Providers Care Installers Mechanical Name Role Phone Mary Jo Kaplan DO Primary Care Provider [phone] Encounter Details Date Type Department Care Team (Late st Contact Info) Description 04/22/2022 Abstract [facility] ADULT D[facility] [address] [place] [address] [place] DDS [address] [place] [address] Social History Tobacco Use Types Packs/Day Years Used Date Smoking Tobacco: Never Passive Smoke Exposure: Never Smokeless Tobacco: Never Sex and Gender Information Value Date Recorded Sex Assigned at Male 12/20/2021 10:17 AM EDT Legal Sex Male 10:17 AM EDT Gender Identity Choose not to disclose 10:17 AM EDT Sexual Orientation Choose not to disclose 2021 10:17 AM EDT COVID-19 Exposure Response Date Recorded In the last 10 days, have yo u been in contact with someone who was confirmed or suspected to have Coronavirus/COVID-19? No / Unsure 04/22/2022 12:44 PM EST documented as of this encounter Plan of Treatment Upcoming Encounters Date Type Department Care Team (Late st Contact Info) Description 11/07/2024 1:00 PM EDT Office Visit [facility] ADULT [facility] [address] [place] [address] Kris, L[place] [address] [place] [address] documented as of this encounter Visit Diagnoses Not on filedocumented in this encounter Care Teams Installers Mechanical Relationship Specialty Start Date End Date Mary Jo Kaplan DO [address] [place] [id number] PCP - General Family Medicine 02/20/18 documented as of this encounter
--- OUTSIDE RECORDS SUMMARY | 2024-10-31 12:55 | XMS_ITS | Encounter Summary ---
Author Organization [employer] Address [address] [place] [address] Care Team Providers Care Model And Mold Maker Name Role Phone Mayr Jo Kaplan DO Primary Care Provider + [phone] Reason for Visit * Reason Comments Med Refill Encounter Details Date Type Department Care Team ([facility] st Contact Info) Description 09/26/2024 Refill [facility] MED[facility]INE [address] [place], [place] [phone] Mary Jo Kaplan DO [address] [place], [place] [phone] Social History Tobacco Use Types Packs/Day Years Used Date Smoking Tobacco: Never Passive Smoke Exposure: Never Smokeless Tobacco: Never Alcohol Use Standard Drinks/Week Comments Never 0 (1 standard drink = 0.6 oz pur e alcohol) Alcohol Answer Date Recorded Frequency of Alcohol Consumption Not on file 11/25/2022 Average Number of Drinks Not on file 023 Frequency of Binge Drinking Not on file 07/2022 Score 0 11/25/2022 Depression Answer Date Recorded Patient Health Questionnaire-9 Score 0 06/22/2023 Patient Health Questionnaire-9 Score 0 06/22/2023 Last PHQ-9: Questionnaire Data Not on file 0 06/22/2023 Housing Stability Answer Date Recorded What is your housing situation today? I have seth cullen 01/05/[address] you li ve. Do you have problems with any of the following? None of the above 01/05/2024 Food Insecurity Answer Date Recorded Within the past 12 months, y ou worried that your food would run out before you got money to buy more: Never True 12/05/2022 Within the past 12 months,th e food you bought just didn't last and you didn't have enough money to get more: Never True Transportation Answer Date Recorded In the past 12 months, has l ack of transportation kept you from medical appts, meetings, work or from getting things needed for daily living? No 06/01/2023 Utilities Answer Date Recorded In the past 12 months, has t he electric, gas, oil or water company threatened to shut off services in your home? No 01/05/2024 Depression Answer Date Recorded Patient Health Questionnaire-2 Score 0 06/22/2023 Internet Access Answer Date Recorded Internet Access Q1 Yes 01/05/2024 Internet Access Q2 Not on file 01/05/2024 Sex and Gender Information Value Date Recorded Sex Assigned at Male 12/20/2021 10:17 AM EDT Legal Sex Male 10:17 AM EDT Gender Identity Choose not to disclose 10:17 AM EDT Sexual Orientation Choose not to disclose 2021 10:17 AM EDT documented as of this encounter Plan of Treatment Upcoming Encounters Date Type Department Care Team (Late st Contact Info) Description 11/07/2024 1:00 PM EDT Office Visit [facility] ADULT DENTAL [address] [place] [address] Kris Laly [address] [place] [address] documented as of this encounter Visit Diagnoses Not on filedocumented in this encounter Additional Health Concerns Assessment Noted Time PHQ-9 Depression Total Score: 0 06/22/19 24 12:15 PM EDT documented as of this encounter Care Teams Model And Mold Maker Relationship Specialty Start Date End Date Mary Jo Kaplan DO [address] [place] [address] PCP - General Family Medicine 02/20/18 documented as of this encounter
--- OUTSIDE RECORDS SUMMARY | 2024-10-31 12:55 | XMS_ITS | Encounter Summary ---
Author Organization [facility] Address [address] [place] [address] Care Team Providers Care Panel Machine Operator Name Role Phone Mary Jo Kaplan DO Primary Care Provider [phone] Encounter Details Date Type Department Care Team (Latest Contact Info) Description 02/27/2018 Abstract [facility] CONVERSIONS Dental, Provider, DDS Social History Tobacco Use Types Packs/Day Years Used Date Smoking Tobacco: Never Assessed Sex and Gender Information Value Date Recorded [...] Description 11/07/2024 1:00 PM EDT Office Visit [facility] ADULT DENTAL [address] [place] [address] Kris, Laly [address] [place] [address] documented as of this encounter Visit Diagnoses Not on filedocumented in this encounter Care Teams Panel Machine Operator Relationship Specialty Start Date End Date Mary Jo Kaplan DO [address] [place] [address] PCP - General Family Medicine 02/20/18 documented as of this encounter
--- OUTSIDE RECORDS SUMMARY | 2024-10-31 12:55 | XMS_ITS | Encounter Summary ---
Author Organization [facility] Address [address] [place] [address] Care Team Providers Care Performance Tester Name Role Phone Mary Jo Kaplan DO Primary Care Provider [phone] Encounter Details Date Type Department Care Team (Latest Contact Info) Description 09/25/[address] [facility] CONVERSIONS Dental, Provider, DDS Social History Tobacco [...] 1:00 PM EDT Office Visit [facility] ADULT DENTAL [address] [place] [address] Kris, Laly [address] [place] [address] documented as of this encounter Visit Diagnoses Not on filedocumented in this encounter Care Teams Performance Tester Relationship Specialty Start Date End Date Mary Jo Kaplan DO [address] [place] [address] PCP - General Family Medicine 02/20/18 documented as of this encounter
--- OUTSIDE RECORDS SUMMARY | 2024-10-31 12:55 | XMS_ITS | Clinical Summary ---
Author Organization [employer] Address [address] [facility] [address] [place] [address] Care Team Providers Care Beater Engineer Helper Name Role Phone Mary Jo Kaplan DO Primary Care Provider [phone] Allergies No known active allergies Medications fluticasone (Flonase) 50 MCG/ACT nasal spray inhale 2 spray by intranasal route every day in each nostril as needed for congestion 1 Active ketoconazole (NIZOral) 2 % shampoo Apply topically. 2 Active ciclopirox (Penlac) 8 % solution Apply topically at bedtime. 6 mL 3 3 Active nystatin (Mycostatin) cream APPLY TO AFFECTED AREA TWICE A DAY 60 g 1 4 Active D3 50 MCG (2000 UT) tablet TAKE 1 TABLET BY MOUTH EVERY DAY 90 tablet 3 4 Active triamcinolone (Kenalog) 0.1 % ointment APPLY THIN COAT TO AFFECTED AREA TWICE A DAY 30 g 1 5 Active levothyroxine (Synthroid, Levoxyl) 100 MCG tablet TAKE 1 TABLET BY MOUTH EVERY DAY 90 tablet 1 5 Active docusate sodium (Colace) 100 MG capsule Take 1 capsule (100 mg) by mouth 2 times daily. 180 capsule 3 5 09/20/19 26 Active polycarbophil (Fibercon) 625 MG tablet Take 1 tablet (625 mg) by mouth 2 times daily. 180 tablet 3 5 09/20/19 26 Active lactulose (Constulose) 10 GM/15ML solution Take 15 mL (10 g) by mouth if needed in the morning and at bedtime (constipation). 473 mL 2 Active Active Problems Problem Noted Date Diagnosed Date Chronic constipation 09/19/2024 Healthcare maintenance 06/22/2023 Assessment & Plan (06/22/2023 12:57 PM EDT): -mom declines flu vaccine -mom declines COVID vaccine -s/p Tdap DEC 2009 -s/p Td OCT 2020 -Hep A/B immune -A1c 5.4%, LDL 140 FEB 2023 -STI screen negative JAN 2014 -s/p optho eval MAR 2022 at [facility] for 2-yr f/u BMI 33.0-33.9,adult 11/25/2022 Nystagmus 11/25/2022 Amblyopia of both eyes 11/25/2022 Hyperopia of both eyes 11/25/2022 Retained deciduous tooth 04/22/2022 Trisomy 21 01/29/2015 Hypothyroidism 01/29/2015 Assessment & Plan (06/22/2023 12:56 PM EDT): s/p radioactive iodine treatment JUL 2020 -TFTs nml FEB 2023 -cont levothyroxine daily -f/u with endo prn History of testicular cancer 01/29/2015 Assessment & Plan (06/22/2023 12:56 PM EDT): No sign of recurrence -f/u with Dr. Luna as scheduled, due APR 2024 Resolved Problems Problem Noted Date Diagnosed Date Resolved Date Normal oral exam 01/05/2024 09/19/2024 Assessment & Plan (01/05/2024 11:49 AM EST): Discussed with patient re increase fresh fruit and vegetable intake. Counseled re moderate exercise as tolerated, up to 20min/d Patient feels safe at home. Eye Exam: UTD, next one due 07/2024. Lipids/FBS: UTD, next one due 2025 Vaccinations: Pt's mother declined Covid and Influenza vaccination today, advised to get them done at earliest convenience. Check MMR and TB tests and follow up with PCP, all other immunizations UTD. Dental visit : UTD, next one due 05/2024. Dental plaque 04/22/2022 09/19/2024 Encounters Date Type Department Care Team Description 10/10/2024 Refill [facility] [address] [place] [address] Mary Jo Kaplan, 09/26/2024 Refill [facility] [address] [place] [address] Mary Jo Kaplan, 09/20/2024 Refill [facility] [address] [place] [address] Mary Jo Kaplan, 09/20/2024 Orders Only [facility] [address] [place] [address] Mary Jo Kaplan, 09/19/2024 10:40 AM EDT Office Visit [facility] [address] [place] [address] Mary Jo Kaplan DO Abdominal bloating (Primary Dx); Chronic constipation; Abnormal finding of blood chemistry, unspecified; Body mass index (BMI) 33.0-33.9, adult 09/19/2024 Refill [facility] [address] [place] [address] Mary Jo Kaplan, 09/19/2024 Refill [facility] [address] [place] [address] Mary Jo Kaplan DO 09/19/2024 Travel 09/18/2024 Telephone [facility] [address] [place] [address] Mary Jo Kaplan DO Nurse Triage 09/09/2024 Telephone [facility] [address] [place] [phone] Mary Jo Kaplan DO ED F/U 08/30/2024 9:00 AM EDT Office Visit [facility] [address] [place] [phone] Santy, Joann, OD Hyperopia of both eyes (Primary Dx) 08/30/2024 Orders Only [facility] External Provider, [facility] 08/12/2024 Refill [facility] [address] [place] [address] Mary Jo Kaplan DO from Last 3 Months Immunizations Immunization Administration Dates Next Due DTaP 09/16/1996, 0,04/01/1988,03/01,01/30/1988 Hep B, Adolescent or Pediatric 07/03/1997,1996,09/16/1996 Hep B, adult 01/27/2014, 4,09/05/2013,12/24 IPV 04/01/1989, 9,03/01/1988,01/29 Influenza injectable quadriv alent IIV4 with preservative 12/28/2016,11/17/2015,01/29/2015 Influenza injectable quadriv alent preservative free 02/22/2019,03/14/2018 Influenza, IIV3, injectable 11/11/2013,1 02/23/2009,12/11/2008,01/23 Influenza, Split (incl. daphne fied surface antigen) 12/05/2012 MMR 01/02/1997,11/12/1996 Meningococcal MCV4P ACYW-135 05/27/2005 TD (adult), 2 Lf tetanus tox oid, preservative free, adsorbed 10/30/2020,12/24/2009,10/19/2001 Tdap 12/24/2009 Family History Medical History Relation Name Comments Hyperlipidemia Father Hypertension Father Kidney disease Father Liver cancer Father's Sister Coronary artery disease Paternal Grandfather Colon cancer Paternal Grandmother Relation Name Status Comments Father Father's Sister Paternal Grandfather Paternal Grandmother Social History Tobacco Use Types Packs/Day Years Used Date Smoking Tobacco: Never Passive Smoke Exposure: Never Smokeless Tobacco: Never Tobacco Cessation:Counseling Given: Not Answered Alcohol Use Standard Drinks/Week Comments Never 0 [...] not to disclose 2021 10:17 AM EDT Last Filed Vital Signs Vital Sign Reading Time Taken Comments Blood Pressure 97/59 09/19/2024 10:31 AM EDT Pulse 54 09/19/2024 10:31 AM EDT Temperature 36.6 C (97.9 F) 09/19/2024 10:31 AM EDT Respiratory Rate 17 09/19/2024 10:31 AM EDT Oxygen Saturation 96% 09/19/2024 10:31 AM EDT Inhaled Oxygen Concentration - - Weight 72.7 kg (160 lb 3.2 oz) 09/19/2024 10:31 AM EDT Height 152.4 cm (5') 01/05/2024 11:06 AM EST Body Mass Index 31.29 01/05/2024 11:06 AM EST Plan of Treatment Upcoming Encounters Date Type Department Care Team (Late st Contact Info) Description 11/07/2024 1:00 PM EDT Office Visit [facility] [address] [place] [address] Laly Ponce [address] [place] [address] Health Maintenance Due Date Last Done Comments Dental X-Ray: Full Mouth 1987 HIV Screening 1987 Disability Screening 1987 Alcohol/Substance Use Screening 1999 Family Planning (PISQ) 11/29/2002 HPV Vaccines (1 - 3-dose series) 11/29/2002 Hepatitis C Screening 11/29/2005 Dental X-Ray: Bitewings 04/24/2023 04/22/2022 Dental Prophylaxis 05/31/2024 2023, 1 02/27/2022, 04/22/2022 Depression Screening 06/21/2024 06/22/2023, 06/22/19 24 Dental Oral Exam 07/05/2024 01/05/2024, 09/2022, 04/22/2022 COVID-19 Vaccine ( season) 2024 09/14/2020, 08/07/2020 Influenza Vaccine (#1) 2024 , 03/14/2018, 12/28/2016, Additional history exists SDOH Screening 01/04/2025 01/05/2024 Tobacco Screening 09/19/2025 09/19/2024 Lipid Panel 03/13/2028 10/31/2024, 02/21, 11/08/2021 DTaP/Tdap/Td Vaccines (8 - Td or Tdap) 10/30/2030 10/30/2020, 12/24/2009, 12/24/2009, Additional history exists Zoster Vaccines (1 of 2) 11/29/2037 RSV Patients and Patients Aged 60 years or older (1 - 1-dose 75+ series) 11/29/2062 IPV Vaccines Completed 04/01/1989, 03/23, 03/01/1988, Additional history exists Meningococcal Vaccine Completed 05/27/2005 Hepatitis B Vaccines Completed 01/27/2014, 11/11/2013, 09/05/2013, Additional history exists HIB Vaccines Aged Out No longer eligi ble based on patient's age to complete this topic Hepatitis A Vaccines Aged Out No long er eligible based on patient's age to complete this topic Meningococcal B Vaccine Aged Out No l onger eligible based on patient's age to complete this topic Pneumococcal Vaccine: Pediatrics (0 to 5 Years) and At-Risk Patients (6 to 49) Years Aged Out No longer eligible based on patient's age to complete this topic RSV under 20 months Aged Out No longe r eligible based on patient's age to complete this topic Rotavirus Vaccines Aged Out No longer eligible based on patient's age to complete this topic Procedures Procedure Name Priority Date/Time Associated Diagnosis Comments CBC WITH AUTO DIFFERENTIAL Routine 10/31/2024 10:23 AM EDT Abdominal bloating Chronic constipation BASIC METABOLIC PANEL Routine 10/31/2024 10:23 AM EDT Abdominal bloating Chronic constipation HEMOGLOBIN A1C Routine 10/31/2024 10:23 AM EDT Abdominal bloating Chronic constipation Abnormal finding of blood chemistry, unspecified HEPATIC FUNCTION PANEL Routine 10/31/2024 10:23 AM EDT Abdominal bloating Chronic constipation VITAMIN D,25-OH,TOTAL,IA Routine 10/31/2024 10:23 AM EDT Abdominal bloating Chronic constipation Body mass index (BMI) 33.0-33.9, adult TSH Routine 10/31/2024 10:23 AM EDT Abdominal bloating Chronic constipation LIPID PANEL, STANDARD Routine 10/31/2024 10:23 AM EDT Abdominal bloating Chronic constipation Abnormal finding of blood chemistry, unspecified T4, FREE Routine 10/31/2024 10:23 AM EDT Abdominal bloating Chronic constipation URINALYSIS WITH REFLEX MICROSCOPIC Routine 08/30/2024 6:47 AM EDT XR KUB AND UPRIGHT 2 VIEWS Routine 08/30/2024 6:35 AM EDT LIPASE Routine 08/30/2024 4:29 AM EDT MAGNESIUM Routine 08/30/2024 4:29 AM EDT COMPREHENSIVE METABOLIC PANEL Routine 08/30/2024 4:29 AM EDT CBC WITH AUTO DIFFERENTIAL Routine 08/30/2024 4:29 AM EDT PERIODIC ORAL EVALUATION - ESTABLISHED PATIENT Routine 01/05/2024 2:30 PM EST PROPHYLAXIS - ADULT Routine 2023 1 :00 PM EDT Dental plaque BITEWINGS - 4 RADIOGRAPHIC IMAGES Routine 04/22/2022 1:00 PM EST Tooth, deciduous Dental plaque on multiple teeth from Last 3 Months or Most Recently Relevant to Health Maintenance Results * Vitamin D, 25-Hydroxy, Total, Immunoassay (10/31/2024 10:23 AM EDT) [facility] Vitamin D 25-OH Total 50.0 >30 ng/mL [facility] Comment: Health Based Reference Values*< 20 ng/mL Imbrdlsok31-62 ng/mL Insufficient> 30 ng/mL Sufficient*Samuel MAR. N Engl J Med. 2007;357:266-280There is no well-established upper level of normal vitamin Dlevels. Some laboratories use 50 ng/mL as an upper limit ofnormal. However, toxicity is patient-dependent and may occurat any level. Careful correlation with the patient'spresentation is necessary and, if there is concern forvitamin D toxicity, treatment should be consideredirrespective of the serum level.Care must be taken in interpreting Vitamin D results fromdifferent laboratories and methodologies. Published datademonstrated that results from patients undergoinghemodialysis may show a negative bias when tested withvarious automated 25-OH vitamin D assays when compared toLC-MS/MS.When testing samples from patients whose predominant form ofVitamin D is Vitamin D2, such as patients receiving VitaminD2 supplementation, results that are subtherapeutic shouldbe confirmed with another method such as LC-MS/MS. Blood Venous blood specimen / Unknown 10/31/2024 10:23 AM EDT 10/31/2024 11:33 AM EDT us Mary Jo Kaplan DO LAB BLOOD ORDERABLES Final R esult [facility] [address] [place] [address] [phone] * (ABNORMAL) CBC auto differential (10/31/2024 10:23 AM EDT) Only the most recent of2 resultswithin the time period is included. White Blood Count 4.2(L) 4.8 - 10.8 X10*3/uL [facility] Red Blood Count 5.16 4.60 - 5.80 X10*6/uL [facility] Hemoglobin 15.2 14.0 - 18.0 g/dl [facility] Hematocrit 45.7 42.0 - 52.0 % [facility] Mean Corpuscular Volume 88.6 80.0 - 98.0 fL [facility] Mean Corpuscular Hemoglobin 29.5 27.0 - 33.0 pg [facility] Mean Corpuscular HGB Conc 33.3 31.0 - 36.0 g/dl [facility] Red Cell Distribution Width 13.6 11.0 - 16.0 % [facility] Platelet Count 194 160 - 400 X10*3/uL [facility] Mean Platelet Volume 9.8 9.4 - 12.4 fL [facility] Neutrophils Percent Auto 55.0 45 - 73 % [facility] Imm Gran Pct Auto 0.2 0.0 - 0.4 % [facility] Lymphocytes Percent Auto 34.8 20 - 40 % [facility] Monocytes Percent Auto 7.4 2 - 11 % [facility] Eosinophils Percent Auto 1.4 0 - 4 % [facility] Basophils Percent Auto 1.2 0 - 2 % [facility] NRBC Pct Auto 0.0 0.0 - 0.2 /100WBC [facility] Neutrophils Absolute Auto 2.3 2.0 - 8.3 x10*3/uL [facility] Imm Gran Abs Auto 0.01 0.00 - 0.03 X10*3/uL [facility] Lymphocytes Absolute Auto 1.5 1.2 - 4.9 X10*3/uL [facility] Monocytes Absolute Auto 0.3 0.1 - 1.2 X10*3/uL [facility] Eosinophils Absolute Auto 0.1 0.0 - 0.4 X10*3/uL [facility] Basophils Absolute Auto 0.1 0.0 - 0.2 X10*3/uL [facility] NRBC Abs Auto 0.000 0.0 - 0.012 X10*3/uL [facility] Blood Venous blood specimen / Unknown 10/31/2024 10:23 AM EDT 10/31/2024 11:35 AM EDT Mary Jo Kaplan LAB BLOOD ORDERABLES Final R esult Performing Organization Address City/[facility]/ZIP Co de Phone Number [facility] [address] [place] [phone] * (ABNORMAL) TSH (10/31/2024 10:23 AM EDT) Thyroid Stimulating Hormone 0.26(L) 0.32 - 4.0 uIU/mL [facility] Comment:TSH 3rd Generation ( [employer]) Blood Venous blood specimen / Unknown 10/31/2024 10:23 AM EDT 10/31/2024 11:33 AM EDT Mary Jo Kaplan LAB BLOOD ORDERABLES Final R esult [facility] [address] [place] [phone] * T4, Free (10/31/2024 10:23 AM EDT) Free T4 (Free Thyroxine) 1.08 0.71 - 1.85 ng/dL [facility] Blood Venous blood specimen / Unknown 10/31/2024 10:23 AM EDT 10/31/2024 11:33 AM EDT Mary Jo Kaplan DO LAB BLOOD ORDERABLES Final R esult Performing Organization Address City/[facility] Co de Phone Number [facility] [address] [place] [address] [phone] * Hemoglobin A1c (10/31/2024 10:23 AM EDT) Hemoglobin A1c 5.5 <6.0 % [facility] Comment:Hemoglobin A1C Refer ence Range Adults: 4.8 - 6.0 % Non diabetic: < 6.0 % Goal: < 7.0 %Additional Action Suggested: > 8.0 %Note: Hemoglobin A1c results are invalid for patients with abnormal amounts of HbF. Blood transfusions may impact the HbA1c concentration in the patient sample. Estimated Average Glucose 111 mg/dL [facility] Comment:eAG = Estimated ave rage glucose which is %A1C expressed asaverage glucose, using the formula of the [id number]-[id number] Glucose study (ADAG), Diabetes Care, Vol.31,#8,Sep. 2007 Blood Venous blood specimen / Unknown 10/31/2024 10:23 AM EDT 10/31/2024 11:35 AM EDT Mary Jo Kaplan DO LAB BLOOD ORDERABLES Final R esult Performing Organization Address City[facility]/ZIP Co de Phone Number [facility] [address] [place] [phone] * Hepatic Function Panel (10/31/2024 10:23 AM EDT) Bilirubin, Total 0.5 0.0 - 1.0 mg/dL [facility] Bilirubin, Direct 0.1 0.0 - 0.5 mg/dL [facility] Aspartate Amino Transferase 23 5 - 37 U/L [facility] Alanine Aminotransferase 20 0 - 40 U/L [facility] Total Protein 7.2 6.5 - 8.0 g/dL [facility] Albumin Level 4.3 3.5 - 5.0 g/dL [facility] Alkaline Phosphatase 70 39 - 117 U/L [facility] Blood Venous blood specimen / Unknown 10/31/2024 10:23 AM EDT 10/31/2024 11:33 AM EDT us Mary Jo Kaplan DO LAB BLOOD ORDERABLES Final R esult [facility] [address] [place], [place] [phone] * (ABNORMAL) Lipid Panel, Standard (10/31/2024 10:23 AM EDT) Triglycerides 107 <150 mg/dL [facility] Comment:Desirable Triglyceri de: less than 150 mg/dLBorderline High Triglyceride 150-199 mg/dLHigh Triglyceride: 200-499 mg/dLVery High Triglyceride: greater than or equal to 5OO mg/dL Cholesterol 179 <200 mg/dL [facility] Comment:Desirable Cholestero l: less than 200 mg/dLBorderline High Cholesterol: 200-239 mg/dLHigh Cholesterol: greater than 239 mg/dL LDL Cholesterol Calculated 120(H) <100 mg/dL [facility] Comment:Desirable LDL: less than 100 mg/dLNear Optimal/Above Optimal LDL: 110- 129 mg/dLBorderline High LDL: 130-159 mg/dLHigh LDL: 160-189 mg/dLVery High LDL: greater than or equal to 190 mg/dL HDL Cholesterol 38(L) >40 mg/dL [facility] Comment:Desirable HDL: great er than 40 mg/dL Note: This HDL assay may give artificially low results in patients with liver disease. Blood Venous blood specimen / Unknown 10/31/2024 10:23 AM EDT 10/31/2024 11:33 AM EDT us Mary Jo Kaplan DO LAB BLOOD ORDERABLES Final R esult Performing Organization Address [facility] Co de Phone Number [facility] [address] [place] [phone] [phone] * (ABNORMAL) Basic Metabolic Panel (10/31/2024 10:23 AM EDT) Sodium 140 135 - 145 mmol/L [facility] Potassium 4.0 3.3 - 5.1 mmol/L [facility] Chloride 102 96 - 108 mmol/L [facility] Carbon Dioxide 31(H) 22 - 29 mmol/L [facility] Anion Gap 11(L) 12 - 20 [facility] Urea Nitrogen (BUN) 13 9 - 16 mg/dL [facility] Creatinine, Serum 0.99 0.5 - 1.4 mg/dL [facility] Estimated Glomerular Filt Rate >60 [facility] Comment:Chronic Kidney Disea se: Estimated GFR < 60 mL/min/1.84v8Uskjld Kidney Disease: Estimated GFR < 15 mL/min/1.73m2 Glucose 94 60 - 115 mg/dL [facility] Calcium 9.1 8.4 - 10.2 mg/dL [facility] Blood Venous blood specimen / Unknown 10/31/2024 10:23 AM EDT 10/31/2024 11:33 AM EDT Mary Jo Eusebio DO LAB BLOOD ORDERABLES Final R esult Performing Organization Address City/[facility]/ZIP Co de Phone Number [facility] [address] [place] [address] [phone] * Urinalysis w/reflex microscopic (08/30/2024 6:47 AM EDT) Color Urine Yellow [facility] Appearance Urine Clear [facility] PH 7.5 5.0 - 9.0 [facility] Glucose Urine UA Negative Negative mg/dL [facility] Urine Blood Negative Negative [facility] Specific [employer] - Urine 1.020 1.005 - 1.025 [facility] Urine Protein Negative Neg-Trace mg/dL [facility] Urine Ketones Negative Negative mg/dL [facility] Nitrite Urine Negative Negative [facility] Leukocyte Esterase Urine Negative Negative [facility] 08/30/2024 6:47 AM EDT 08/30/2024 6:51 AM EDT Narrative [facility] - 08/30/2024 6:55 AM EDT Urine, Clean Catch us Generic External Data Provider LAB URINE ORDERAB LES Final Result [facility] [address] [place] [phone] * XR KUB and Upright 2 Views (08/30/2024 6:35 AM EDT) Anatomical Region Laterality Modality Radiographic Capri ging 08/30/2024 6:35 AM EDT Narrative 08/30/2024 6:36 AM EDT [address] [address] XRay Report Signed Patient: Jigar Yeboah MR#: [id number] 57 : 1985 Acct:[id number] Age/Sex: 38 / M ADM Date: 08/30/24 Loc: .ED Attending Dr: Ordering Physician: Flower Hudson MD Date of Service: 08/30/24 Procedure(s): XR KUB Accession Number(s): [id number] cc: Mary Jo Kaplan DO; Flower Hudson MD CLINICAL HISTORY: constipation 1 view abdomen Comparison: None provided Findings: Hfbvcqgf-kx-uvwnk amount of stool throughout the colon. No dilated small bowel. No indirect evidence for free air on this supine exam. No abnormal soft tissue calcifications are identified over the bilateral kidneys or expected course of the ureters. Lung bases are clear. No acute bony abnormality. IMPRESSION: Ntypxiin-yk-rrlbu amount of stool throughout the colon without findings of obstruction. This document has been electronically signed by: Devin Mckenna MD on 08/30/2024 06:35:06 Dictated By: Devin Mckenna MD Signed By: <Electronically signed by Devin Mckenna MD in OV> 08/30/24635 DD/ 4 TD/TT: 08/30/24634 Land Management Supervisor: Procedure Note Lyudmila, Image - 08/30/2024 [place] [address] XRay Report Signed Patient: Jigar YeboahMR#: [id number] 57 : 1985Acct:[id number] Age/Sex: 38 / MADM Date: 08/30/24 Loc: HO.ED Attending Dr: Ordering Physician: Flower Hudson MD Date of Service: 08/30/24 Procedure(s): XR KUB Accession Number(s): [id number] cc: Mary Jo Kaplan DO; Flower Hudson MD CLINICAL HISTORY: constipation 1 view abdomen Comparison: None provided Findings: Wscjvvpv-zh-itwhv amount of stool throughout the colon. No dilated small bowel. No indirect evidence for free air on this supine exam. No abnormal soft tissue calcifications are identified over the bilateral kidneys or expected course of the ureters. Lung bases are clear. No acute bony abnormality. IMPRESSION: Ywpiqldi-ky-bcwtr amount of stool throughout the colon without findings of obstruction. This document has been electronically signed by: Devin Mckenna MD on 08/30/2024 06:35:06 Dictated By: Devin Mckenna MD Signed By: <Electronically signed by Devin Mckenna MD in OV> 08/30/24635 DD/ 4 TD/TT: 08/30/24634 Land Management Supervisor: us [facility] External Provider IMG XR PROCEDURES Edited Result - Final * Magnesium (08/30/2024 4:29 AM EDT) Magnesium 2.1 1.6 - 2.6 mg/dL [facility] 08/30/2024 4:29 AM EDT 08/30/2024 4:33 AM EDT us Generic External Data Provider LAB BLOOD ORDERAB LES Final Result Performing Organization Address City/[facility]/ZIP Co de Phone Number [facility] [address] [place] [phone] * Lipase (08/30/2024 4:29 AM EDT) Lipase 15 8 - 78 U/L [facility] 08/30/2024 4:29 AM EDT 08/30/2024 4:33 AM EDT Generic External Data Provider LAB BLOOD ORDERAB LES Final Result Performing Organization Address [facility] de Phone Number [facility] [address] [place] [phone] * (ABNORMAL) Comprehensive Metabolic Panel (08/30/2024 4:29 AM EDT) Pathologist [facility] Sodium 140 135 - 145 mmol/L [facility] Potassium 4.2 3.3 - 5.1 mmol/L [facility] Comment:Slight Hemolysis.Int erpret result with caution. Chloride 105 96 - 108 mmol/L [facility] Carbon Dioxide 28 22 - 29 mmol/L [facility] Anion Gap 11(L) 12 - 20 [facility] Urea Nitrogen (BUN) 17(H) 9 - 16 mg/dL [facility] Creatinine, Serum 0.84 0.5 - 1.4 mg/dL [facility] Creatinine Clr Calc Pharmacy 102.7 [facility] Comment:eGFR (calculated fro m the MDRD study equation) and eCrCl(calculated from the Cockcroft-Gault equation) are based ondifferent parameters and may not yield comparable results.If eCrCl result is absurd, please check patient'sheight/weight. Estimated Glomerular Filt Rate >60 [facility] Comment:Chronic Kidney Disea se: Estimated GFR < 60 mL/min/1.52m0Uegeaz Kidney Disease: Estimated GFR < 15 mL/min/1.73m2 Glucose 112 60 - 115 mg/dL [facility] Calcium 8.7 8.4 - 10.2 mg/dL [facility] Bilirubin, Total 0.3 0.0 - 1.0 mg/dL [facility] Aspartate Amino Transferase 32 5 - 37 U/L [facility] Comment:Slight Hemolysis.Int erpret result with caution. Alanine Aminotransferase 30 0 - 40 U/L [facility] Total Protein 6.5 6.5 - 8.0 g/dL [facility] Albumin Level 3.8 3.5 - 5.0 g/dL [facility] Alkaline Phosphatase 76 39 - 117 U/L [facility] 08/30/2024 4:29 AM EDT 08/30/2024 4:33 AM EDT us Generic External Data Provider LAB BLOOD ORDERAB LES Final Result Performing Organization Address City/State/[facility] Co de Phone Number [facility] [address] [place] [address] [phone] from Last 3 Months Insurance [address] [place] [phone] [place] [id number] [facility] DDS ADULT Care Teams Beater Engineer Helper Relationship Specialty Start Date End Date Mary Jo Kaplan DO [address] [place] [address] PCP - General Family Medicine 02/20/18
--- OUTSIDE RECORDS SUMMARY | 2024-10-31 12:55 | XMS_ITS | Patient Health Record ---
Author Organization Bradford Luna III, MD Address [address] [facility] [place] [address] Care Team Providers Care Hand Ironer Name Role Phone KT RICHARD Primary Care Provider Bradford Luna [phone] Allergies Allergen (clinical drug ingredient) Drug/Non Drug Allergy documented on EMR Reaction Allergy Type Onset Date Status No Known Drug Allergy Unknown Drug Allergy Active Reason For Referral No Information Medications Medication SIG (Take, Route, Frequency, Duration) Notes Start Date End Date Status Vitamin D3 2000 UNIT (Prior Auth: Rx Ref#:[id number]) Oral Active Levothyroxine Sodium 75 MCG Orally Once a day Active Social History Tobacco Use: Social History Observation Description Date Details (start date - stop date) Never Smoker NA - NA Tobacco Use/Smoking Question Answer Notes Patient is a nonsmoker Additional Findings: Tobacco Non-User Aggressive non-smoker Alcohol Screen Question Answer Notes Did you have a drink containing alcohol in the p ast year? 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 Problem Hypothyroidism (45802832) Hypothyroidis m, unspecified (E03.9) Active confirmed He has been compliant with his medical regimen. He appears to be euthyroid. Problem Obesity (375838447) Obesity, unspecified (E66.9) Active confirmed His body mass index is elevated. I recommended good nutrition, weight loss of 1/2 pound per week until her body mass index is below 25 and regular exercise.He has lost 5 pounds since his last visit. Problem Down syndrome (67920784) Down syndrome, unspecified (Q90.9) Active confirmed There is no sign of leukemia. 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 Vital Signs Heart Rate 59 /min 05/14/2024 Temperature 98.2 degrees Fahrenheit 05/14/2024 Blood pressure diastolic 66 mm Hg 05/14/2024 Height 61 in 05/14/2024 Blood pressure systolic 119 mm Hg 05/14/2024 Weight 164 lbs 05/14/2024 BMI 30.98 kg/m2 05/14/2024 Encounters Encounter Location Date Provider Diagnosis Bradford Luna III, MD [address] [place] [address] [place] [address] 05/14/2024 Bradford Luna Malignant neoplasm o f [...] no sign of leukemia. Plan Of Treatment Pending Test Test Name Order Date PLATELET COUNT 08/26/2016 URINALYSIS (UA) 04/22/2022 URINE CULTURE 04/22/2022 Next Appt Details Provider Name:Bradford Luna, 05/14/2025 03:30:00 PM, [address] [facility] [address], [place], [address], Insurance Providers Payer Name Payer Address Payer Phone Subscriber Number Group Number Insured Name Patient Relationship to Insured Coverage Start Date Coverage End Date MEDICARE NGS [address] [place] [address] [id number] Jigar Ospina Self - patient is the insured 9 MEDICAID [place] [address] [place] [id number] Jigar Ospina Self - patient is the insured Medical (General) History Medical History History ICD Code Stage I seminoma right testis Down's syndrome hypothyroidism obesity Surgical History Surgery Date(Month/Year) right radical orchiectomy 05/2005
--- OUTSIDE RECORDS SUMMARY | 2024-10-31 12:55 | XMS_ITS | Encounter Summary ---
Author Organization [employer] Address [address] [facility] 7t [place] [address] Care Team Providers Care Wildlife Rehabilitator Name Role Phone Mary Jo Kaplan DO Primary Care Provider + [phone] Reason for Visit * Reason Comments Med Change Request Encounter Details Date Type Department Care Team ([facility] st Contact Info) Description 05/17/2024 Refill [facility] MEDICINE [address] [place], [place] [phone] Mary Jo Kaplan DO [address] [place], [place] [phone] Constipation, unspecified constipation type Social History Tobacco Use Types Packs/Day Years [...] 1:00 PM EDT Office Visit [facility] ADULT DENTAL [address] [place] [address] KrisToribioLaly [address] [place] [address] documented as of this encounter Visit Diagnoses Diagnosis Constipation, unspecified constipation type documented in this encounter Additional Health Concerns Assessment Noted Time PHQ-9 Depression Total Score: 0 06/22/19 24 12:15 PM EDT documented as of this encounter Care Teams Wildlife Rehabilitator Relationship Specialty Start Date End Date Mary Jo Kaplan DO [address] [place] [address] PCP - General Family Medicine 02/20/18 documented as of this encounter
--- OUTSIDE RECORDS SUMMARY | 2024-10-31 12:55 | XMS_ITS | Encounter Summary ---
Author Organization [employer] Address [address] [facility] 7t [place] [address] Care Team Providers Care Call Center Operations Manager Name Role Phone Mary Jo Kaplan DO Primary Care Provider + [phone] Reason for Visit * Reason Comments Med Change Request Encounter Details Date Type Department Care Team ([facility] st Contact Info) Description 10/10/2024 Refill [facility] MEDICINE [address] [place], [place] [phone] Mary Jo Kaplan DO [address] [place], [place] [phone] Social History Tobacco Use Types Packs/Day Years [...] Description 11/07/2024 1:00 PM EDT Office Visit [facility] ADULT DENTAL [address] [place] [address] Kris Laly [address] [place] [address] documented as of this encounter Visit Diagnoses Not on filedocumented in this encounter Additional Health Concerns Assessment Noted Time PHQ-9 Depression Total Score: 0 06/22/19 24 12:15 PM EDT documented as of this encounter Care Teams Call Center Operations Manager Relationship Specialty Start Date End Date Mary Jo Kaplan DO [address] [place] [address] PCP - General Family Medicine 02/20/18 documented as of this encounter
--- OUTSIDE RECORDS SUMMARY | 2024-10-31 12:55 | XMS_ITS | Encounter Summary ---
Author Organization [employer] [facility] Address [address] [facility] 7t [place] [address] Care Team Providers Care Barrel Cap Setter Name Role Phone Mary Jo Kaplan DO Primary Care Provider [phone] Encounter Details Date Type Department Care Team (Late st Contact Info) Description 04/22/2022 Abstract [facility] ADULT DENTAL [address] [place] [address] Fernando Bay DDS [address] [place] [address] Social History Tobacco Use Types Packs/Day Years [...] 1:00 PM EDT Office Visit [facility] ADULT DENTAL [address] [place] [address] Kris, Laly [address] [place] [address] documented as of this encounter Visit Diagnoses Not on filedocumented in this encounter Care Teams Barrel Cap Setter Relationship Specialty Start Date End Date Mary Jo Kaplan DO [address] [place] [address] PCP - General Family Medicine 02/20/18 documented as of this encounter
== END 2024-10-31 10:19 | disposition home or self-care (01) ==
LOC: HO.HHCL 10:18
PROVIDERS: PCP Family Medicine; Visit Provider Family Medicine
DX: R14.0 Abdominal distension (gaseous) (principal); R79.9 Abnormal finding of blood chemistry, unspecified; K59.09 Other constipation; Z68.33 Body mass index [BMI] 33.0-33.9, adult
CPT/HCPCS: 36415; 80048; 80061; 80076; 82306; 83036; 84439; 84443; 85025

== ENCOUNTER 2024-11-08 08:39 | Outpatient (REF) | payer MEDICARE, MEDICAID, SELFPAY ==
--- OUTSIDE RECORDS SUMMARY | 2024-11-07 13:00 | XMS_ITS | Encounter Summary ---
Author Organization [employer] Address [address] [facility] 7t [place] [address] Care Team Providers Care Adoption Social Worker Name Role Phone Mary Jo Kaplan DO Primary Care Provider + [phone] Reason for Visit * Reason Comments Routine Cleaning Dental Exam X-rays Perio chart. Encounter Details Date Type Department Care Team ([facility] st Contact Info) Description 11/07/2024 1:00 PM EDT Office Visit [facility] ADULT DENTAL [address] [place], [place] [phone] Laly Ponce [address] [place] [address] Tooth missing (Primary Dx); Dental plaque; Excessive attrition of teeth, limited to enamel; Retained deciduous tooth Social History Tobacco Use Types Packs/Day Years [...] AM EDT documented as of this encounter Last Filed Vital Signs Vital Sign Reading Time Taken Comments Blood Pressure 122/72 11/07/2024 1:14 PM EDT Pulse - - Temperature - - Respiratory Rate - - Oxygen Saturation - - Inhaled Oxygen Concentration - - Weight - - Height - - Body Mass Index - - documented in this encounter Progress Notes * Laly Ponce - 11/07/2024 1:00 PM EDT Appoint x-rays if pt allows, prophy, perio chart. P. Exam Patient ID: Jigar Yeboah is a 38 y.o. adult. Time Out: Timeout Date: 11/07/24, Timeout Time: 1305 (prophy7, x-rays, perio chart, prophy) Location: [facility] Tooth: Maxilla and Mandible Procedure: Exam, X-rays, Prophylaxis, and Perio chart Verified the above with patient, certified ophthalmic surgical assistant, and provider. Confirmed via patient's chart, intraorally and by radiographs. Spice Room Worker: not applicable Medical Hx: Vitals: Blood pressure 122/72. Medications, Med Hx reviewed with patient and updated in chart. Treatment Provided Dental procedures in this visit D1110 - PROPHYLAXIS - ADULT (Completed) Service provider: Laly Ponce Billing provider: Fernando Bay DDS D0274 - BITEWINGS - 4 RADIOGRAPHIC IMAGES (Completed) Service provider: Laly Ponce Billing provider: Fernando Bay DDS D0220 - INTRAORAL - PERIAPICAL FIRST RADIOGRAPHIC IMAGE (Completed) Service provider: Laly Ponce Billing provider: Fernando Bay DDS D0230 - INTRAORAL - PERIAPICAL EACH ADDITIONAL RADIOGRAPHIC IMAGE (Completed) Service provider: Laly Ponce Billing provider: Fernando Bay DDS D9450 - CASE PRESENTATION, DETAILED AND EXTENSIVE TREATMENT PLANNING (Completed) Service provider: Laly Ponce Billing provider: Fernando Bay DDS D1330 - ORAL HYGIENE INSTRUCTIONS (Completed) Service provider: Laly Ponce Billing provider: Fernando Bay DDS Instruments Used: Ultrasonic Scalers, Hand Scalers, and Prophy angle Fluoride: N/A Oral Cancer Screening: No lesions, chapped teeth Head/Neck Exam: raised light colored mole bellow left ear alana. Calculus: None Plaque: Light Stain: decalcified Bleeding: Light Gingiva: pink OH: Fair Perio Chart: Completed Oral hygiene instructions provided to patient including brushing technique and flossing. Recommendations: [place] two times daily, modified pal technique, Floss daily, Electric toothbrush, Soft bristle toothbrush, [place] Tongue, Anti-sensitivity toothpaste Recall Frequency: 6 mo NV: 6 months Prophy Hygienist: Laly Ponce RDH * Fernando Bay DDS - 11/07/2024 1:00 PM EDT Dental procedures in this visit D1110 - PROPHYLAXIS - ADULT (Completed) Service provider: Laly Ponce Billing provider: Fernando Bay DDS D0274 - BITEWINGS - 4 RADIOGRAPHIC IMAGES (Completed) Service provider: Laly Ponce Billing provider: Fernando Bay DDS D0220 - INTRAORAL - PERIAPICAL FIRST RADIOGRAPHIC IMAGE (Completed) Service provider: Laly Ponce Billing provider: Fernando Bay DDS D0230 - INTRAORAL - PERIAPICAL EACH ADDITIONAL RADIOGRAPHIC IMAGE (Completed) Service provider: Laly Ponce Billing provider: Fernando Bay DDS D9450 - CASE PRESENTATION, DETAILED AND EXTENSIVE TREATMENT PLANNING (Completed) Service provider: Laly Ponce Billing provider: Fernando Bay DDS D1330 - ORAL HYGIENE INSTRUCTIONS (Completed) Service provider: Laly Ponce Billing provider: Fernando Bay DDS Patient ID: Jigar Yeboah is a 38 y.o. adult. Time Out: Timeout Date: 11/07/24, Timeout Time: 1305 (prophy7, x-rays, perio chart, prophy) Location: [facility] Tooth: Maxilla and Mandible Procedure: Exam, X-rays, and Prophylaxis Verified the above with patient, certified ophthalmic surgical assistant, and provider. Confirmed via patient's chart, intraorally and by radiographs. Spice Room Worker: not applicable Chief Complaint Patient presents with Routine Cleaning Dental Exam X-rays Perio chart. Medical Hx: Vitals: Blood pressure 122/72. Medical History[1] Medications: Encounter Medications[2] Objective HPI Asymptomatic Head and Neck Exam: Lymph Nodes, Lips, Palate, Buccal Mucosa, Floor of Mouth, Tongue, Tonsils, Alveolar Ridges, Oropharynx, Salivary Ducts, and Vestibules normal appearance Details: Skin NSF OCS: negative Dental Exam As charted Missing teeth Plaque Excessive teeth attrition Reference tooth chart for additional findings. Oral Cancer Risk: Low Risk Oral Hygiene Instructions: [place] two times daily, modified pal technique, Floss daily, Electric toothbrush, Soft bristle toothbrush, [place] Tongue Caries Risk Assessment: Medium- one risk factor Assessment/Plan CALE X Rays Prophy Recall Patient tolerated procedure well, all questions answered and expressed understanding. Dismissed in good condition. NV: 6 mos recall Hand Salter: Laly Ponce RD Dentist: Fernando Bay DDS [1] Past Medical History: Diagnosis Date 6th nerve palsy, bilateral Amblyopia Bleeding gums Bradycardia Chorioretinal scar, right Congenital cataract of left eye History of testicular cancer Hypothyroidism Nystagmus Onychomycosis Strabismus Trisomy 21 [2] Outpatient Encounter Medications as of 11/07/2024 Medication Sig Dispense Refill ciclopirox (Penlac) 8 % solution Apply topically at bedtime. 6 mL 3 D3 50 MCG (2000 UT) tablet TAKE 1 TABLET BY MOUTH EVERY DAY 90 tablet 3 docusate sodium (Colace) 100 MG capsule Take 1 capsule (100 mg) by mouth 2 times daily. 180 capsule3 fluticasone (Flonase) 50 MCG/ACT nasal spray inhale 2 spray by intranasal route every day in each nostril as needed for congestion ketoconazole (NIZOral) 2 % shampoo Apply topically. lactulose (Constulose) 10 GM/15ML solution Take 15 mL (10 g) by mouth if needed in the morning and at bedtime (constipation). 473 mL 2 levothyroxine (Synthroid, Levoxyl) 100 MCG tablet TAKE 1 TABLET BY MOUTH EVERY DAY 90 tablet 1 nystatin (Mycostatin) cream APPLY TO AFFECTED AREA TWICE A DAY 60 g 1 polycarbophil (Fibercon) 625 MG tablet Take 1 tablet (625 mg) by mouth 2 times daily. 180 tablet 3 triamcinolone (Kenalog) 0.1 % ointment APPLY THIN COAT TO AFFECTED AREA TWICE A DAY 30 g 1 No facility-administered encounter medications on file as of 11/07/2024. documented in this encounter Plan of Treatment Upcoming Encounters Date Type Department Care Team (Late st Contact Info) Description 05/09/2025 2:15 PM EDT Office Visit [facility] ADULT DENTAL [address] [place], [place] [phone] Kris, Laly [address] [place] [address] Scheduled Orders Name Type Priority Associated Diagnoses Orde r Schedule PROPHYLAXIS - ADULT Dental Routine 1 Occ urrences starting 11/07/2024 CASE PRESENTATION, DETAILED AND EXTENSIVE TREATMENT PLANNING Dental Routine 1 Occurrences starting 11/07/2024 documented as of this encounter Procedures Procedure Name Priority Date/Time Associated Diagnosis Comments PROPHYLAXIS - ADULT Routine 11/07/2024 1 :00 PM EDT Dental plaque ORAL HYGIENE INSTRUCTIONS Routine 11/07/2024 1:00 PM EDT Tooth missing Dental plaque Excessive attrition of teeth, limited to enamel Retained deciduous tooth INTRAORAL - PERIAPICAL FIRST RADIOGRAPHIC IMAGE Routine 11/07/2024 1:00 PM EDT Tooth missing Dental plaque Excessive attrition of teeth, limited to enamel Retained deciduous tooth INTRAORAL - PERIAPICAL EACH ADDITIONAL RADIOGRAPHIC IMAGE Routine 11/07/2024 1:00 PM EDT Tooth missing Dental plaque Excessive attrition of teeth, limited to enamel Retained deciduous tooth CASE PRESENTATION, DETAILED AND EXTENSIVE TREATMENT PLANNING Routine 11/07/2024 1:00 PM EDT Tooth missing Dental plaque Excessive attrition of teeth, limited to enamel Retained deciduous tooth BITEWINGS - 4 RADIOGRAPHIC IMAGES Routine 11/07/2024 1:00 PM EDT Tooth missing Dental plaque Excessive attrition of teeth, limited to enamel Retained deciduous tooth documented in this encounter Visit Diagnoses Diagnosis Tooth missing- Primary Dental plaque Accretions on teeth Excessive attrition of teeth, limited to enamel Retained deciduous tooth Disturbances in tooth eruption documented in this encounter Additional Health Concerns Assessment Noted Time PHQ-9 Depression Total Score: 0 06/22/19 24 12:15 PM EDT documented as of this encounter Care Teams Adoption Social Worker Relationship Specialty Start Date End Date Mary Jo Kaplan DO [address] [place] [address] PCP - General Family Medicine 02/20/18 documented as of this encounter
--- NOTE | ~2024-11-08 | US_ITS ---
EXAMINATION: US ABDOMEN HISTORY: abd bloating TECHNIQUE: Real-time grayscale ultrasound imaging of the abdomen was performed and images were reviewed. COMPARISON: There are no prior studies available for comparison. FINDINGS: Liver: The right lobe of the liver measures 13.5 cm in size. The left lobe of the liver measures 9.3 cm in size. The liver demonstrates normal homogeneous echotexture. No focal mass or intrahepatic biliary ductal dilatation is identified. There is normal hepatopedal flow in the portal vein. Gallbladder and biliary tree: The gallbladder is unremarkable, without evidence of calculi, wall thickening, or pericholecystic fluid. There is no sonographic Cameron sign. The common bile duct is normal in caliber measuring 3 mm. Kidneys: The right kidney measures 8.5 cm in length. The left kidney measures 9.8 cm in length. The kidneys are unremarkable, without evidence of masses, hydronephrosis, or calculi. Pancreas: The pancreas is obscured by bowel gas. Spleen: The spleen is normal in size and contour, measuring 6.2 cm in length. Abdominal aorta and inferior vena cava: The visualized portions of the abdominal aorta and inferior vena cava are normal in caliber. There is no free fluid in the abdomen. US/US abdomen complete IMPRESSION: The pancreas is not visualized. Otherwise unremarkable abdominal ultrasound. Electronically signed by: Bradford Aguila MD 11/08/2024 09:56 AM EDT
--- OUTSIDE RECORDS SUMMARY | 2024-11-08 09:14 | XMS_ITS | Encounter Summary ---
Author Organization [employer] [facility] Address [address] [facility] 7t [place] [address] Care Team Providers Care Offal Worker Name Role Phone Mary Jo Kaplan DO Primary Care Provider [phone] Encounter Details Date Type Department Care Team (Late st Contact Info) Description 04/22/2022 Abstract [facility] ADULT DENTAL [address] [place] [address] Fernando Bay DDS [address] [place] [address] Social History Tobacco Use Types Packs/Day Years [...] 05/09/2025 2:15 PM EDT Office Visit [facility] ADULT DENTAL [address] [place] [address] Kris, Laly [address] [place] [address] documented as of this encounter Visit Diagnoses Not on filedocumented in this encounter Care Teams Offal Worker Relationship Specialty Start Date End Date Mary Jo Kaplan DO [address] [place] [address] PCP - General Family Medicine 02/20/18 documented as of this encounter
--- OUTSIDE RECORDS SUMMARY | 2024-11-08 09:14 | XMS_ITS | Encounter Summary ---
Author Organization [employer] [facility] Address [address] [facility] 7t [place] [address] Care Team Providers Care Manager Unix Name Role Phone Mary Jo Kaplan DO Primary Care Provider [phone]- [phone] Encounter Details Date Type Department Care Team (Late st Contact Info) Description 04/22/2022 Abstract [facility] ADULT DENTAL [address] [place] [address] Fernando Bay DDS [address] [place] [address] Social History Tobacco Use Types Packs/Day Years [...] Description 05/09/2025 2:15 PM EDT Office Visit [facility] ADULT DENTAL [address] [place] [address] Kris, Laly [address] [place] [address] documented as of this encounter Visit Diagnoses Not on filedocumented in this encounter Care Teams Manager Unix Relationship Specialty Start Date End Date Mary Jo Kaplan DO [address] [place] [address] PCP - General Family Medicine 02/20/18 documented as of this encounter
--- OUTSIDE RECORDS SUMMARY | 2024-11-08 09:14 | XMS_ITS | Encounter Summary ---
Author Organization [employer] Address [address] [facility] 7t [place] [address] Care Team Providers Care Marketing Development Representative Name Role Phone Mary Jo Kaplan DO Primary Care Provider + [phone] Reason for Visit * Reason Comments Med Change Request Encounter Details Date Type Department Care Team ([facility] st Contact Info) Description 10/10/2024 Refill [facility] MEDICINE [address] [place], [place] [phone] Mary Jo Kaplan DO [address] [place], [place] [phone] Social History Tobacco Use Types Packs/Day Years [...] Description 05/09/2025 2:15 PM EDT Office Visit [facility] ADULT DENTAL [address] [place] [address] Kris Laly [address] [place] [address] documented as of this encounter Visit Diagnoses Not on filedocumented in this encounter Additional Health Concerns Assessment Noted Time PHQ-9 Depression Total Score: 0 06/22/19 24 12:15 PM EDT documented as of this encounter Care Teams Marketing Development Representative Relationship Specialty Start Date End Date Mary Jo Kaplan DO [address] [place] [address] PCP - General Family Medicine 02/20/18 documented as of this encounter
--- OUTSIDE RECORDS SUMMARY | 2024-11-08 09:14 | XMS_ITS | Encounter Summary ---
Author Organization [employer] Address [address] [facility] 7t [place] [address] Care Team Providers Care Boat Officer Name Role Phone Mary Jo Kaplan DO Primary Care Provider + [phone] Reason for Visit * Reason Comments Med Refill Encounter Details Date Type Department Care Team ([facility] st Contact Info) Description 09/26/2024 Refill [facility] MEDICINE [address] [place], [place] [phone] Mary Jo Kaplan DO [address] [place], [place] [phone] Social History Tobacco Use Types Packs/Day Years [...] Description 05/09/2025 2:15 PM EDT Office Visit [facility] ADULT DENTAL [address] [place] [address] Kris Laly [address] [place] [address] documented as of this encounter Visit Diagnoses Not on filedocumented in this encounter Additional Health Concerns Assessment Noted Time PHQ-9 Depression Total Score: 0 06/22/19 24 12:15 PM EDT documented as of this encounter Care Teams Boat Officer Relationship Specialty Start Date End Date Mary Jo Kaplan DO [address] [place] [address] PCP - General Family Medicine 02/20/18 documented as of this encounter
--- OUTSIDE RECORDS SUMMARY | 2024-11-08 09:15 | XMS_ITS | Encounter Summary ---
Author Organization [employer] [facility] Address [address] [facility] 7t [place] [address] Care Team Providers Care Home Restoration Service Cleaner Name Role Phone Mary Jo Kaplan DO Primary Care Provider +[phone] Encounter Details Date Type Department Care Team (Latest Contact Info) Description 02/27/2018 Abstract [facility] Dental, Provider, DDS Social History Tobacco [...] Description 05/09/2025 2:15 PM EDT Office Visit [facility] ADULT DENTAL [address] [place] [address] Kris, Laly [address] [place] [address] documented as of this encounter Visit Diagnoses Not on filedocumented in this encounter Care Teams Home Restoration Service Cleaner Relationship Specialty Start Date End Date Mary Jo Kaplan DO [address] [place] [address] PCP - General Family Medicine 02/20/18 documented as of this encounter
--- OUTSIDE RECORDS SUMMARY | 2024-11-08 09:15 | XMS_ITS | Clinical Summary ---
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 11/07/2024 Chronic constipation 09/19/2024 Healthcare maintenance 06/22/2023 Assessment & Plan (06/22/2023 12:57 PM EDT): -mom declines flu vaccine -mom declines COVID vaccine -s/p Tdap DEC 2009 -s/p Td OCT 2020 -Hep A/B immune -A1c 5.4%, LDL 140 FEB 2023 -STI screen negative JAN 2014 -s/p optho eval MAR 2022 at [facility] for 2-yr f/u BMI 33.0-33.9,adult 11/25/2022 Nystagmus [...] Encounters Date Type Department Care Team Description 11/07/2024 1:00 PM EDT Office Visit [facility] ADULT DENTAL [address] [facility] [place] [address] Laly Ponce Tooth missing (Primary Dx); Dental plaque; Excessive attrition of teeth, limited to enamel; Retained deciduous tooth 10/10/2024 Refill [facility] MEDICINE [address] [place] [address] Mary Jo Kaplan, 09/26/2024 Refill [facility] MEDICINE [address] [place] [address] Mary Jo Kaplan, 09/20/2024 Refill [facility] MEDICINE [address] [place] [address] Mary Jo Kaplan, 09/20/2024 Orders Only [facility] MEDICINE [address] [place] [address] Mary Jo Kaplan, 09/19/2024 10:40 AM EDT Office Visit [facility] [address] [facility] [facility] [place] [address] Mary Jo Kaplan DO Abdominal bloating (Primary Dx); Chronic constipation; Abnormal finding of blood chemistry, unspecified; Body mass index (BMI) 33.0-33.9, adult 09/19/2024 Refill [facility] [address] [place] [address] Mary Jo Kaplan, 09/19/2024 Refill [facility] [address] [place] [address] Mary Jo Kaplan, 09/19/2024 Travel 09/18/[address] [address] Mary Jo Kaplan DO Nurse Triage 09/09/[address] [address] Mary Jo Kaplan DO ED F/U 08/30/2024 9:00 AM EDT Office Visit [facility] OPTOMETRY [address] [place] [address] Santy, Joann, OD Hyperopia of both eyes (Primary Dx) 08/30/2024 Orders Only [facility] External Provider, [facility] 08/12/2024 Refill [facility] MEDICINE [address] [place] [address] Mary Jo Kaplan DO from Last 3 [...] Pressure 122/72 11/07/2024 1:14 PM EDT Pulse 54 09/19/2024 10:31 AM EDT [...] Description 05/09/2025 2:15 PM EDT Office Visit [facility] ADULT DENTAL [address] [place] [address] Kris, Laly [address] [place] [address] Health Maintenance Due Date Last Done Comments Dental X-Ray: Full Mouth 1985 HIV Screening 1987 Disability Screening 1987 Alcohol/Substance Use Screening 1999 Family Planning (PISQ) 11/29/2002 HPV Vaccines (1 - 3-dose series) 11/29/2002 Hepatitis C Screening 11/29/2005 Depression Screening 06/21/2024 06/22/2023, 06/22/19 24 Dental Oral Exam 07/05/2024 01/05/2024, 09/2022, 04/22/2022 COVID-19 Vaccine ( season) 2024 09/14/2020, 08/07/2020 Influenza Vaccine (#1) 2024 , 03/14/2018, 12/28/2016, Additional history exists SDOH Screening 01/04/2025 01/05/2024 Dental Prophylaxis 05/08/2025 11/07/2024, 1 , 12/28/2022, Additional history exists Tobacco Screening 11/07/2025 11/07/2024 Dental X-Ray: Bitewings 11/08/2025 11/07/2024, 04/22 Lipid Panel 10/31/2029 10/31/2024, 02/21, 11/08/2021 DTaP/Tdap/Td Vaccines (8 - [...] Procedure Name Priority Date/Time Associated Diagnosis Comments ORAL HYGIENE INSTRUCTIONS Routine 11/07/2024 1:00 PM [...] teeth, limited to enamel Retained deciduous tooth PROPHYLAXIS - ADULT Routine 11/07/2024 1 :00 PM EDT Dental plaque CBC WITH AUTO DIFFERENTIAL Routine 10/31/2024 10:23 [...] ESTABLISHED PATIENT Routine 01/05/2024 2:30 PM EST from Last 3 Months or Most Recently Relevant to Health Maintenance Results * Vitamin D, 25-Hydroxy, Total, Immunoassay (10/31/2024 10:23 AM EDT) Vitamin D 25-OH Total 50.0 >30 ng/mL [facility] Comment: Health Based Reference Values*< 20 ng/mL Psxrqhptx49-17 ng/mL Insufficient> 30 ng/mL Sufficient*Samuel MAR. N [...] DO LAB BLOOD ORDERABLES Final R esult [facility] [address] [place] [address] [phone] * (ABNORMAL) CBC auto differential (10/31/2024 10:23 AM EDT) Only the most recent of2 resultswithin the time period is included. Pathologist [facility] White Blood Count 4.2(L) 4.8 - 10.8 X10*3/uL [facility] Red Blood Count 5.16 4.60 - 5.80 X10*6/uL [facility] Hemoglobin 15.2 14.0 - 18.0 g/dl [facility] Hematocrit 45.7 42.0 - 52.0 % [facility] Mean Corpuscular Volume 88.6 80.0 - 98.0 fL [facility] Mean Corpuscular Hemoglobin 29.5 27.0 - 33.0 pg [facility] Mean Corpuscular HGB Conc 33.3 31.0 - 36.0 g/dl [facility] Red Cell Distribution Width 13.6 11.0 - 16.0 % [facility] Platelet Count 194 160 - 400 X10*3/uL [facility] Mean Platelet Volume 9.8 9.4 - 12.4 fL [facility] Neutrophils Percent Auto 55.0 45 - 73 % [facility] Imm Gran Pct Auto 0.2 0.0 - 0.4 % [facility] Lymphocytes Percent Auto 34.8 20 - 40 % [facility] Monocytes Percent Auto 7.4 2 - 11 % [facility] Eosinophils Percent Auto 1.4 0 - 4 % [facility] Basophils Percent Auto 1.2 0 - 2 % [facility] NRBC Pct Auto 0.0 0.0 - 0.2 /100WBC [facility] Neutrophils Absolute Auto 2.3 2.0 - 8.3 x10*3/uL [facility] Imm Gran Abs Auto 0.01 0.00 - 0.03 X10*3/uL [facility] Lymphocytes Absolute Auto 1.5 1.2 - 4.9 X10*3/uL [facility] Monocytes Absolute Auto 0.3 0.1 - 1.2 X10*3/uL [facility] Eosinophils Absolute Auto 0.1 0.0 - 0.4 X10*3/uL [facility] Basophils Absolute Auto 0.1 0.0 - 0.2 X10*3/uL [facility] NRBC Abs Auto 0.000 0.0 - 0.012 X10*3/uL [facility] Blood Venous blood specimen / Unknown 10/31/2024 10:23 AM EDT 10/31/2024 11:35 AM EDT us Mary Jo Kaplan DO LAB BLOOD ORDERABLES Final R esult [facility] [address] [place] [address] [phone] * (ABNORMAL) TSH (10/31/2024 10:23 AM EDT) Thyroid Stimulating Hormone 0.26(L) 0.32 - 4.0 uIU/mL [facility] Comment:TSH 3rd Generation ( [employer]) Blood Venous blood specimen / Unknown 10/31/2024 10:23 AM EDT 10/31/2024 11:33 AM EDT Mary Jo Kaplan LAB BLOOD ORDERABLES Final R esult Performing Organization Address [facility] Co de Phone Number [facility] [address] [place] [phone] * T4, Free (10/31/2024 10:23 AM EDT) Free T4 (Free Thyroxine) 1.08 0.71 - 1.85 ng/dL [facility] Blood Venous blood specimen / Unknown 10/31/2024 10:23 AM EDT 10/31/2024 11:33 AM EDT Mary Jo Kaplan DO LAB BLOOD ORDERABLES Final R esult Performing Organization Address [facility] Co de Phone Number [facility] [address] [place] [phone] * Hemoglobin A1c (10/31/2024 10:23 AM EDT) Hemoglobin A1c 5.5 <6.0 % [facility] Comment:Hemoglobin A1C Refer ence Range Adults: 4.8 - 6.0 % Non diabetic: < 6.0 % Goal: < 7.0 %Additional Action Suggested: > 8.0 %Note: Hemoglobin A1c results are invalid for patients with abnormal amounts of HbF. Blood transfusions may impact the HbA1c concentration in the patient sample. Estimated Average Glucose 111 mg/dL [facility] Comment:eAG = Estimated ave rage glucose which is %A1C expressed asaverage glucose, using the formula of the R7T-BolbvrjCmyegmf Glucose study (ADAG), Diabetes Care, Vol.31,#8,Sep. 2007 Blood Venous blood specimen / Unknown 10/31/2024 10:23 AM EDT 10/31/2024 11:35 AM EDT Mary Jo Eusebio DO LAB BLOOD ORDERABLES Final R esult [facility] [address] [place] [phone] * Hepatic Function Panel (10/31/2024 10:23 AM EDT) Bilirubin, Total 0.5 0.0 - 1.0 mg/dL [facility] Bilirubin, Direct 0.1 0.0 - 0.5 mg/dL [facility] Aspartate Amino Transferase 23 5 - 37 U/L [facility] Alanine Aminotransferase 20 0 - 40 U/L [facility] Total Protein 7.2 6.5 - 8.0 g/dL [facility] Albumin Level 4.3 3.5 - 5.0 g/dL [facility] Alkaline Phosphatase 70 39 - 117 U/L [facility] Blood Venous blood specimen / Unknown 10/31/2024 10:23 AM EDT 10/31/2024 11:33 AM EDT Mary Jo Eusebio DO LAB BLOOD ORDERABLES Final R esult Performing Organization Address City/[facility]/ZIP Co de Phone Number [facility] [address] [place] [address] [phone] * (ABNORMAL) Lipid Panel, Standard (10/31/2024 10:23 AM EDT) Triglycerides 107 <150 mg/dL [facility] Comment:Desirable Triglyceri de: less than 150 mg/dLBorderline High Triglyceride 150-199 mg/dLHigh Triglyceride: 200-499 mg/dLVery High Triglyceride: greater than or equal to 5OO mg/dL Cholesterol 179 <200 mg/dL [facility] Comment:Desirable Cholestero l: less than 200 mg/dLBorderline High Cholesterol: 200-239 mg/dLHigh Cholesterol: greater than 239 mg/dL LDL Cholesterol Calculated 120(H) <100 mg/dL [facility] Comment:Desirable LDL: less than 100 mg/dLNear Optimal/Above Optimal LDL: 110- 129 mg/dLBorderline High LDL: 130-159 mg/dLHigh LDL: 160-189 mg/dLVery High LDL: greater than or equal to 190 mg/dL HDL Cholesterol 38(L) >40 mg/dL [facility] Comment:Desirable HDL: great er than 40 mg/dL Note: This HDL assay may give artificially low results in patients with liver disease. Blood Venous blood specimen / Unknown 10/31/2024 10:23 AM EDT 10/31/2024 11:33 AM EDT us Mary Jo Kaplan DO LAB BLOOD ORDERABLES Final R esult [facility] [address] [place] [phone] * (ABNORMAL) Basic Metabolic Panel (10/31/2024 10:23 AM EDT) Sodium 140 135 - 145 mmol/L [facility] Potassium 4.0 3.3 - 5.1 mmol/L [facility] Chloride 102 96 - 108 mmol/L [facility] Carbon Dioxide 31(H) 22 - 29 mmol/L [facility] Anion Gap 11(L) 12 - 20 [facility] Urea Nitrogen (BUN) 13 9 - 16 mg/dL [facility] Creatinine, Serum 0.99 0.5 - 1.4 mg/dL [facility] Estimated Glomerular Filt Rate >60 [facility] Comment:Chronic Kidney Disea se: Estimated GFR < 60 mL/min/1.32f7Xibeoe Kidney Disease: Estimated GFR < 15 mL/min/1.73m2 Glucose 94 60 - 115 mg/dL [facility] Calcium 9.1 8.4 - 10.2 mg/dL [facility] Blood Venous blood specimen / Unknown 10/31/2024 10:23 AM EDT 10/31/2024 11:33 AM EDT us Mary Jo Kaplan DO LAB BLOOD ORDERABLES Final R esult Performing Organization Address City/[facility]/ZIP Co de Phone Number [facility] [address] [place] [phone] * Urinalysis w/reflex microscopic (08/30/2024 6:47 AM EDT) Color Urine Yellow [facility] Appearance Urine Clear [facility] PH 7.5 5.0 - 9.0 [facility] Glucose Urine UA Negative Negative mg/dL [facility] Urine Blood Negative Negative [facility] Specific [place] - Urine 1.020 1.005 - 1.025 [facility] Urine Protein Negative Neg-Trace mg/dL [facility] Urine Ketones Negative Negative mg/dL [facility] Nitrite Urine Negative Negative [facility] Leukocyte Esterase Urine Negative Negative [facility] 08/30/2024 6:47 AM EDT 08/30/2024 6:51 AM EDT Narrative [facility] - 08/30/2024 6:55 AM EDT Urine, Clean Catch us Generic External Data Provider LAB URINE ORDERAB LES Final Result Performing Organization Address [facility] Co de Phone Number [facility] [address] [place] [phone] * XR KUB and Upright 2 Views (08/30/2024 6:35 AM EDT) Anatomical Region Laterality Modality Radiographic Capri ging 08/30/2024 6:35 AM EDT Narrative 08/30/2024 6:36 AM EDT [address] [address] XRay Report Signed Patient: Jigar Yeboah MR#: [id number] 57 : 1985 Acct:[id number] Age/Sex: 38 / M ADM Date: 08/30/24 Loc: HO.ED Attending Dr: Ordering Physician: Flower Hudson MD Date of Service: 08/30/24 Procedure(s): XR KUB Accession Number(s): [id number] cc: Mary Jo Kaplan DO; Flower Hudson MD CLINICAL HISTORY: constipation 1 view abdomen Comparison: None provided Findings: Ahkxknhp-ld-otrqm amount of stool throughout the colon. No dilated small bowel. No indirect evidence for free air on this supine exam. No abnormal soft tissue calcifications are identified over the bilateral kidneys or expected course of the ureters. Lung bases are clear. No acute bony abnormality. IMPRESSION: Zqvpkhso-op-apezw amount of stool throughout the colon without findings of obstruction. This document has been electronically signed by: Devin Mckenna MD on 08/30/2024 06:35:06 Dictated By: Devin Mckenna MD Signed By: <Electronically signed by Devin Mckenna MD in OV> 08/30/2436 DD/ 4 TD/TT: 08/30/24634 Seat Trimmer: Procedure Note Donotuseinterpreter, Image - 08/30/[address] [address] XRay Report Signed Patient: Jigar YeboahMR#: [id number] 57 : 1985Acct:[id number] Age/Sex: 38 / MADM Date: 08/30/24 Loc: .ED Attending Dr: Ordering Physician: Flower Hudson MD Date of Service: 08/30/24 Procedure(s): XR KUB Accession Number(s): [id number] cc: Mary Jo Kaplan DO; Flower Hudson MD CLINICAL HISTORY: constipation 1 view abdomen Comparison: None provided Findings: Bhzrxgvc-mn-hxjgu amount of stool throughout the colon. No dilated small bowel. No indirect evidence for free air on this supine exam. No abnormal soft tissue calcifications are identified over the bilateral kidneys or expected course of the ureters. Lung bases are clear. No acute bony abnormality. IMPRESSION: Gasqdslk-yd-dtxsk amount of stool throughout the colon without findings of obstruction. This document has been electronically signed by: Devin Mckenna MD on 08/30/2024 06:35:06 Dictated By: Devin Mckenna MD Signed By: <Electronically signed by Devin Mckenna MD in OV> 08/30/2436 DD/ 4 TD/TT: 08/30/24634 Seat Trimmer: [facility] External Provider IMG XR PROCEDURES Edited Result - Final * Magnesium (08/30/2024 4:29 AM EDT) Pathologist [facility] Magnesium 2.1 1.6 - 2.6 mg/dL [facility] 08/30/2024 4:29 AM EDT 08/30/2024 4:33 AM EDT Generic External Data Provider LAB BLOOD ORDERAB LES Final Result Performing Organization Address [facility] Co de Phone Number [facility] [address] [place] [phone] * Lipase (08/30/2024 4:29 AM EDT) [facility] Lipase 15 8 - 78 U/L [facility] 08/30/2024 4:29 AM EDT 08/30/2024 4:33 AM EDT Generic External Data Provider LAB BLOOD ORDERAB LES Final Result Performing Organization Address [facility] Co de Phone Number [facility] [address] [place] [phone] * (ABNORMAL) Comprehensive Metabolic Panel (08/30/2024 4:29 AM EDT) Sodium 140 135 - 145 mmol/L [facility] Potassium 4.2 3.3 - 5.1 mmol/L [facility] Comment:Slight Hemolysis.Int erpret result with caution. Chloride 105 96 - 108 mmol/L [facility] Carbon Dioxide 28 22 - 29 mmol/L [facility] Anion Gap 11(L) 12 - 20 [facility] Urea Nitrogen (BUN) 17(H) 9 - 16 mg/dL [facility] Creatinine, Serum 0.84 0.5 - 1.4 mg/dL [facility] Creatinine Clr Calc Pharmacy 102.7 [facility] Comment:eGFR (calculated fro m the MDRD study equation) and eCrCl(calculated from the Cockcroft-Gault equation) are based ondifferent parameters and may not yield comparable results.If eCrCl result is absurd, please check patient'sheight/weight. Estimated Glomerular Filt Rate >60 [facility] Comment:Chronic Kidney Disea se: Estimated GFR < 60 mL/min/1.40f6Ahnoaq Kidney Disease: Estimated GFR < 15 mL/min/1.73m2 Glucose 112 60 - 115 mg/dL [facility] Calcium 8.7 8.4 - 10.2 mg/dL [facility] Bilirubin, Total 0.3 0.0 - 1.0 mg/dL [facility] Aspartate Amino Transferase 32 5 - 37 U/L [facility] Comment:Slight Hemolysis.Int erpret result with caution. Alanine Aminotransferase 30 0 - 40 U/L [facility] Total Protein 6.5 6.5 - 8.0 g/dL [facility] Albumin Level 3.8 3.5 - 5.0 g/dL [facility] Alkaline Phosphatase 76 39 - 117 U/L [facility] 08/30/2024 4:29 AM EDT 08/30/2024 4:33 AM EDT us Generic External Data Provider LAB BLOOD ORDERAB LES Final Result [facility] [address] [place] [phone] from Last 3 Months Insurance [place] [id number] [facility] STANDARD DENTAL-[facility] MEDICAID STAND ADULT Care Teams Director Of Undergraduate Admissions Relationship Specialty Start Date End Date Mary Jo Kaplan DO [address] [place] [address] PCP - General Family Medicine 02/20/18
--- OUTSIDE RECORDS SUMMARY | 2024-11-08 09:15 | XMS_ITS | Encounter Summary ---
Author Organization [facility] Address [address] [facility] [address] [place] [address] Care Team Providers Care Regional Trainer Name Role Phone Mary Jo Kaplan DO Primary Care Provider [phone] Encounter Details Date Type Department Care Team (Latest Contact Info) Description 09/25/2020 Abstract [facility] CONVERSIONS Dental, Provider, DDS Social History [...] Description 05/09/2025 2:15 PM EDT Office Visit [facility] ADULT DENTAL [address] [place] [address] Kris, Laly [address] [place] [address] documented as of this encounter Visit Diagnoses Not on filedocumented in this encounter Care Teams Regional Trainer Relationship Specialty Start Date End Date Mary Jo Kaplan DO [address] [place] [address] PCP - General Family Medicine 02/20/18 documented as of this encounter
--- OUTSIDE RECORDS SUMMARY | 2024-11-08 09:15 | XMS_ITS | Encounter Summary ---
Author Organization [employer] Address [address] [facility] [address] [place] [address] Care Team Providers Care Refrigerating Machine Operator Name Role Phone Mary Jo Kaplan DO Primary Care Provider + [phone] Reason for Visit * Reason Comments Med Change Request Encounter Details Date Type Department Care Team ([facility] st Contact Info) Description 05/17/2024 Refill [facility] MEDICINE [address] [place], [place] [phone] Mary Jo Kaplan DO [address] [place], [place] [phone] Constipation, unspecified constipation type Social History Tobacco [...] Description 05/09/2025 2:15 PM EDT Office Visit [facility] ADULT DENTAL [address] [place] [address] Toribio Poncearis [address] [place] [address] documented as of this encounter Visit Diagnoses Diagnosis Constipation, unspecified constipation type documented in this encounter Additional Health Concerns Assessment Noted Time PHQ-9 Depression Total Score: 0 06/22/19 24 12:15 PM EDT documented as of this encounter Care Teams Refrigerating Machine Operator Relationship Specialty Start Date End Date Mary Jo Kaplan DO [address] [place] [address] PCP - General Family Medicine 02/20/18 documented as of this encounter
== END 2024-11-08 08:40 | disposition home or self-care (01) ==
LOC: HO.US 08:39
PROVIDERS: PCP Family Medicine; Visit Provider Family Medicine
DX: R14.0 Abdominal distension (gaseous) (principal)
CPT/HCPCS: 76700

== ENCOUNTER → 2024-11-08 08:41 | Outpatient (BNV) | payer MEDICARE, MEDICAID, SELFPAY | PROVIDERS: PCP Family Medicine; Visit Provider Radiology Diagnostic Radiology | DX: R14.0 Abdominal distension (gaseous) (principal) | CPT/HCPCS: 76700 ==

== ENCOUNTER 2025-01-10 20:29 | Emergency (ER) | payer MEDICARE, MEDICAID, SELFPAY ==
--- OUTSIDE RECORDS SUMMARY | 2024-04-26 09:00 | XMS_ITS ---
Author Organization Bradford Luna III, MD Address [address] [place] [address] [place] [address] Care Team Providers Care Scientist Propagator Name Role Phone YOLANDAELIOT RICHARD Primary Care Provider Dr. Bradford Luna III [phone] Allergies Allergen (clinical drug ingredient) Drug/Non Drug Allergy documented on EMR Reaction Allergy Type Onset Date Status No Known Drug Allergy Unknown Drug Allergy Active REASON FOR VISIT Follow-up Medications Medication SIG (Take, Route, Frequency, Duration) Notes Start Date End Date Status Vitamin D3 2000 UNIT (Prior Auth: Rx Ref#:[id number]) Oral Active Levothyroxine Sodium 75 MCG Orally Once a day Active Social History Tobacco Use: Social History Observation Description Date Details (start date - stop date) Never Smoker NA - NA Tobacco Use/Smoking Question Answer Notes Patient is a nonsmoker Additional Findings: Tobacco Non-User Aggressive non-smoker Encounters Encounter Location Date Provider Diagnosis Bradford Luna III, MD [address] [place] [address] [place] [address] 04/26/2024 Bradford Luna Malignant neoplasm o f unspecified descended testis C62.10 Assessments Encounter Date Diagnosis (ICD Code) Assessment Notes Treatment Notes Treatment Clinical Notes 04/26/2024 Malignant neoplasm of unspecified descended testis (ICD-10 - C62.10) There is no sign of recurrent malignancy over new primary today. 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 Plan Of Treatment Medication Medication Name Sig Start Date Stop Date Notes Vitamin D3 2000 UNIT (Prior Auth: Rx Ref #:[id number]) Oral Levothyroxine Sodium 75 MCG Orally Once a day Next Appt Details Provider Name:Bradford Luna , 05/14/2025 03:30:00 PM, [address] [place] [address] [address], [place], [address], Progress Notes * Alexander GREGORYOB:[birth year] (39 yo M)Acc No.[id number]:04/26/2024 Progress Notes Patient: Jigar FAJARDO Provider: Syed Luna MD :1985 A ge:38 Y S ex:Male Date:04/26/2024 Address:[address] [place], [place] [id number] Pcp:RICHARD MERAZ Subjective: * Chief Complaints: * 1 . Follow-up. * HPI: C OVID-19 Screening: Questions H ave you had any new onset fever, chills, cough, congestion, sore throat, shortness of breath, muscle aches? N o * ROS: G eneral/Constitutional: pain o nly normal aches and pains. C hills d enies.?Fatigue a dmits. F ever d enies. E NT: Decreased hearing d enies. R espiratory: Cough d enies. C ardiovascular: Chest pain with exertion d enies. D yspnea on exertion?denies. S hortness of breath d enies. G astrointestinal: Constipation d enies. D ecreased appetite d enies.?Diarrhea d enies. H eartburn d enies. N ausea d enies. R ectal bleeding?denies. V omiting d enies. H ematology: bruising d enies. p etechiae d enies. S wollen glands n one have been noted. G enitourinary: Frequent urination d enies. M usculoskeletal: Muscle aches d enies. P ainful joints d enies. S ciatica d enies. W eakness d enies. S kin: Itching d enies. R amanda d enies. S kin lesion(s)?denies. N eurologic: Difficulty speaking d enies. D izziness d enies.?Headache d enies. L ow back pain d enies. P sychiatric: Depressed mood d enies. * Medical History: S tage I seminoma right testis, Down's syndrome, Hypothyroidism, Obesity. * Surgical History: r ight radical orchiectomy 05/2005. * Hospitalization/Major Diagno stic Procedure: D enies Past Hospitalization. * Family History: F ather: alive, BPH, diagnosed with HTN, Hyperlipidemia. M other: alive, diagnosed with HTN. P aternal Grand Father: , diagnosed with CVD. P aternal uncle: , diagnosed with HTN. P aternal aunt: , liver cancer, diagnosed with Cancer. 2 brother(s) , 1 sister(s) - healthy. . There is no family history of genitourinary neoplasia. * Social History: T obacco Use: T obacco Use/Smoking P atient is a n onsmoker A dditional Findings: Tobacco Non-User A ggressive non-smoker H e lives with his family. * Medications: T aking Levothyroxine Sodium 75 MCG Tablet Orally Once a day , Taking Vitamin D3 2000 UNIT Tablet (Prior Auth: Rx Ref#:[id number]) Oral , Medication List reviewed and reconciled with the patient * Allergies: N o Known Drug Allergy. Objective: * Vitals: * Examination: G eneral Examination: GENERAL APPEARANCE: p leasant, well nourished, well developed, in no acute distress, calm and relaxed. HEAD: a traumatic, normocephalic. EYES: e everett, perrla, anicteric, conjugate. EARS: n ormal. NOSE: s eptum intact. ORAL CAVITY: n ormal, unremarkable. NECK/THYROID: n o jugular venous distention, no carotid bruit, thyroid normal. LYMPH NODES: n o enlarged lymph nodes,spleen normal. SKIN: n o suspicious lesions, anicteric. HEART: n o clicks, gallops, murmurs, or rubs, regular rhythm, S1, S2 normal, no s3, or vascular bruits. LUNGS: c lear to auscultation . BREASTS: no masses palpable bilaterally. ABDOMEN: b owel sounds normal, no ascites, no organomegaly, no mass. RECTAL EXAM: n ot examined. MUSCULOSKELETAL: e xtremities unremarkable, no clubbing, cyanosis or edema. PERIPHERAL PULSES: n ormal. NEUROLOGIC: a lert and oriented, cranial nerves 2-12 grossly intact, deep tendon reflexes 2+ symmetrical, motor strength normal upper and lower extremities, sensory exam intact. PSYCH: a lert, oriented. Assessment: * Assessment: 1. M alignant neoplasm of unspecified descended testis - C62.10 N otes :There is no sign of recurrent malignancy over new primary today. 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 Plan: * Treatment: * Images: * The named appointment provid er may or may not be the originator of this progress note, and it is not deemed complete until electronically signed by the appointment provider. Sign off status: Pending * Provider: Syed Luna MD Date: 0 04/26/2024 Generated for Eliceo castañeda/Sun/Petesmitting on: 03/12/2024 09:40 PM EST History and Physical Notes * HPI (History of Present Illness) Category Sub-Category Detail Notes COVID-19 Screening Questions Have you had any new onset fever, chills, cough, congestion, sore throat, shortness of breath, muscle aches?: No Examination Category Sub-Category Detail Notes General Examination GENERAL APPEARANCE: pleasant , well nourished, well developed, in no acute distress, calm and relaxed HEAD: atraumatic, normocep halic EYES: eomi, perrla, anicte kacey, conjugate EARS: normal NOSE: septum intact NECK/THYROID: no jugular venous di stention, no carotid bruit, thyroid normal HEART: no clicks, gallops, murmurs, or rubs, regular rhythm, S1, S2 normal, no s3, or vascular bruits LUNGS: clear to auscultatio n ABDOMEN: bowel sounds normal, no ascites, no organomegaly, no mass NEUROLOGIC: alert and oriented, cranial nerves 2-12 grossly intact, deep tendon reflexes 2+ symmetrical, motor strength normal upper and lower extremities, sensory exam intact SKIN: no suspicious lesion s, anicteric PERIPHERAL PULSES: normal BREASTS: no masses palpable b ilaterally MUSCULOSKELETAL: extremities unremark able, no clubbing, cyanosis or edema LYMPH NODES: no enlarged lymph no stevie,spleen normal RECTAL EXAM: not examined PSYCH: alert, oriented ORAL CAVITY: normal, unremarkable
--- OUTSIDE RECORDS SUMMARY | 2024-05-14 09:45 | XMS_ITS ---
Author Organization Bradford Luna III, MD Address [address] [place] [address] [place] [address] Care Team Providers Care Mother Baby Rn Name Role Phone RICHARD MERAZ Primary Care Provider Dr. Bradford Luna III Unavailable Allergies Allergen (clinical drug ingredient) Drug/Non Drug Allergy documented on EMR Reaction Allergy Type Onset Date Status No Known Drug Allergy Unknown Drug Allergy Active REASON FOR VISIT History of testicular seminoma, Down's syndrome, Hypothyroidism, Obesity Medications Medication SIG (Take, Route, Frequency, Duration) Notes Start Date End Date Status Vitamin D3 2000 UNIT (Prior Auth: Rx Ref#:[id number]) Oral Active Levothyroxine Sodium 75 MCG Orally Once a day Active Social History Tobacco Use: Social History Observation Description Date Details (start date - stop date) Never Smoker NA - NA Tobacco Use/Smoking Question Answer Notes Patient is a nonsmoker Additional Findings: Tobacco Non-User Aggressive non-smoker Vital Signs Temperature 98.2 degrees Fahrenheit 05/15/19 25 Blood pressure systolic 119 mm Hg 05/15/19 25 Blood pressure diastolic 66 mm Hg 025 Heart Rate 59 /min 05/14/2024 Height 61 in 05/14/2024 Weight 164 lbs 05/14/2024 BMI 30.98 kg/m2 05/14/2024 Encounters Encounter Location Date Provider Diagnosis Bradford Luna III, MD [address] [place] [address] [place] [address] 05/14/2024 Bradford Luna Malignant neoplasm o f unspecified descended testis C62.10 ; Hypothyroidism, unspecified E03.9 ; Obesity, unspecified E66.9 and Down syndrome, unspecified Q90.9 Assessments Encounter Date Diagnosis (ICD Code) Assessment Notes Treatment Notes Treatment Clinical Notes 05/14/2024 Malignant neoplasm of unspecified descended testis (ICD-10 - C62.10) There is no sign of recurrent malignancy over new primary today. 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 05/14/2024 Hypothyroidism, unspecified (ICD-10 - E03.9) He has been compliant with his medical regimen. He appears to be euthyroid. 05/14/2024 Obesity, unspecified (ICD-10 - E66.9) His body mass index is elevated. I recommended good nutrition, weight loss of 1/2 pound per week until her body mass index is below 25 and regular exercise.He has lost 5 pounds since his last visit. 05/14/2024 Down syndrome, unspecified (ICD-10 - Q90.9) There is no sign of leukemia. Plan Of Treatment Medication Medication Name Sig Start Date Stop Date Notes Vitamin D3 2000 UNIT (Prior Auth: Rx Ref #:[id number]) Oral Levothyroxine Sodium 75 MCG Orally Once a day Next Appt Details Follow Up: 1 Year, Reason: O V Provider Name:Bradford Luna , 05/14/2025 03:30:00 PM, [address] [place] [address], [address], Progress Notes * Alexander GREGORYOB:[birth year] (38 yo M)Acc No.[id number]:05/14/2024 Progress Notes Patient: Keena DIAZ Jigar SERNA Provider: Syed Luna MD :1985 A ge:38 Y S ex:Male Date:05/14/2024 Address:[address] [place] [id number] Pcp:RICHARD MERAZ Subjective: * Chief Complaints: * H istory of testicular seminomaDown's syndromeHypothyroidismObesity * HPI: C OVID-19 Screening: H e returns to the office for ongoing follow-up after a seminoma was treated with surgery and chemotherapy some years ago. His remaining testis was examined today and was unremarkable. On examination there was no sign of a second malignancy. The blood work that was available shows no sign of leukemia. He says that he is feeling healthy and well at the age of 38. No change in his regimen was made. Follow-up was arranged. Questions H ave you had any new [...] of breath d enies. G astrointestinal: Constipation o ccasional. D ecreased appetite d enies. D iarrhea d enies. H eartburn d enies. N ausea d enies. R ectal bleeding d enies. V omiting d enies. H ematology: bruising [...] Depressed mood d enies. * Medical History: * Surgical History: r ight radical orchiectomy 05/2005 * Hospitalization/Major Diagno stic Procedure: D enies Past Hospitalization * Family History: F ather: alive, BPH, [...] History: T obacco Use: T obacco Use/Smoking Kenzie caldera is a n onsmoker A dditional Findings: Tobacco Non-User A ggressive non-smoker David carter lives with his family. * Medications: T akingLevothyroxine Sodium 75 MCG Tablet Orally Once a day Vitamin D3 2000 UNIT Tablet (Prior Auth: Rx Ref#:[id number]) Oral Medication List reviewed and reconciled with the patientTaking Levothyroxine Sodium 75 MCG Tablet Orally Once a day Taking Vitamin D3 2000 UNIT Tablet (Prior Auth: Rx Ref#:[id number]) Oral Medication List reviewed and reconciled with the patient * Allergies: N o Known Drug Allergyno[Allergies Verified] Objective: * Vitals: H t: 61, Wt: 164, BMI:30.98, BP: 119/66, HR: 59, Temp: 98.2, Wt-k.39. * Examination: G eneral Examination: GENERAL APPEARANCE: p leasant, well nourished, well developed, in no acute distress, calm and relaxed, obese, man with Down syndrome. HEAD: a traumatic, normocephalic. EYES: e everett, [...] sounds normal, no ascites, no organomegaly, no mass, centripital obesity. RECTAL EXAM: n ot examined. MUSCULOSKELETAL: e xtremities unremarkable, no clubbing, cyanosis or edema. PERIPHERAL PULSES: n ormal. NEUROLOGIC: a lert and oriented, cranial nerves 2-12 grossly intact, deep tendon reflexes 2+ symmetrical, motor strength normal upper and lower extremities, sensory exam intact. PSYCH: a lert, oriented. G enitourinary - Male: TESTICLES: T he remaining testicle is within normal limits.? Assessment: * Assessment: 1. M alignant neoplasm of unspecified descended testis - C62.10 (Primary) N otes :There is no sign of recurrent malignancy over new primary today. 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 2 . H ypothyroidism, unspecified - E03.9 N otes :He has been compliant with his medical regimen. He appears to be euthyroid. 3 . O besity, unspecified - E66.9 N otes :His body mass index is elevated. I recommended good nutrition, weight loss of 1/2 pound per week until her body mass index is below 25 and regular exercise.He has lost 5 pounds since his last visit. 4 . D own syndrome, unspecified - Q90.9 N otes :There is no sign of leukemia. Plan: * Treatment: * Procedure Codes: * Preventive Medicine: Counseling: C are goal follow-up plan: Counseling for abnormal BMI given Y es Above Normal BMI Follow-up D ietary management education, guidance, and counseling, Dietary needs education, Exercise promotion: strength training, Exercise promotion: stretching, Feeding regime, Giving encouragement to exercise, Lifestyle education regarding diet, Nutrition / feeding management, Nutrition therapy, Prescribed activity/exercise education, Prescribed diet education, Prescribed dietary intake, Special diet education, Weight monitoring , Intervention, Order not done: Medical or Other reason not done * Follow Up: 1 Year (Reason: OV) * Images: * Sign off status: Completed true * Provider: Syed Luna MD Date: 0 05/14/2024 Generated for Printi ng/Sun/eTransmitting on: 03/12/2024 09:41 PM EST History and Physical Notes * HPI (History of Present Illness) Category Sub-Category Detail Notes COVID-19 Screening Questions Have you had any new onset fever, chills, cough, congestion, sore throat, shortness of breath, muscle aches?: No Examination Category Sub-Category Detail Notes Genitourinary - Male TESTICLES: The remaini ng testicle is within normal limits General Examination GENERAL APPEARANCE: pleasant , well nourished, well developed, in no acute distress, calm and relaxed, obese, man with Down syndrome HEAD: atraumatic, normocep halic EYES: eomi, perrla, anicte kacey, conjugate EARS: normal NOSE: septum intact NECK/THYROID: no jugular venous di stention, no carotid bruit, thyroid normal HEART: no clicks, gallops, murmurs, or rubs, regular rhythm, S1, S2 normal, no s3, or vascular bruits LUNGS: clear to auscultatio n ABDOMEN: bowel sounds normal, no ascites, no organomegaly, no mass, centripital obesity NEUROLOGIC: alert and oriented, cranial nerves 2-12 [...]
[2025-01-10 20:49] VITALS: BP 107/64; PULSE 56; RESP 18; TEMP 36.5; O2SAT 95; BMI 30.7
--- OUTSIDE RECORDS SUMMARY | 2025-01-10 21:40 | XMS_ITS | Encounter Summary ---
Author Organization [employer] [facility] [facility] Address [address] [facility] 7t [place] [address] Care Team Providers Care Chief Projectionist Name Role Phone Mary Jo Kaplan DO Primary Care Provider [phone] Encounter Details Date Type Department Care Team (Latest Contact Info) Description 02/27/2018 Abstract [facility] CONVERSIONS Dental, Provider, DDS Social [...] Care Team (Late st Contact Info) Description 01/23/2025 10:30 AM EST Office Visit [facility] MEDICINE [address] [place] [address] Zarina Oliveira FNP [address] [place] [address] 05/09/2025 2:15 PM EDT Office Visit [facility] ADULT DENTAL [address] [place] [address] Kris Laly [address] [place] [address] documented as of this encounter Visit Diagnoses Not on filedocumented in this encounter Care Teams Chief Projectionist Relationship Specialty Start Date End Date Mary Jo Kaplan DO [address] [place] [address] PCP - General Family Medicine 02/20/18 documented as of this encounter
--- OUTSIDE RECORDS SUMMARY | 2025-01-10 21:40 | XMS_ITS | Encounter Summary ---
Author Organization [employer] Address [address] [facility] 7t [place] [address] Care Team Providers Care Wooden Fence Erector Name Role Phone Mary Jo Kaplan DO Primary Care Provider + [phone] Reason for Visit * Reason Comments Med Refill Encounter Details Date Type Department Care Team ([facility] st Contact Info) Description 09/26/2024 Refill [facility] MEDICINE [address] [place], [place] [phone] Mary Jo Kaplan DO [address] [place], [place] [phone] Social History Tobacco Use Types Packs/Day Years [...] Description 01/23/2025 10:30 AM EST Office Visit [facility] MEDICINE [address] [place] [address] Zarina Oliveira FNP [address] [place] [address] 05/09/2025 2:15 PM EDT Office Visit [facility] ADULT DENTAL [address] [place] [address] Toribio Poncearis [address] [place] [address] documented as of this encounter Visit Diagnoses Not on filedocumented in this encounter Additional Health Concerns Assessment Noted Time PHQ-9 Depression Total Score: 0 06/22/19 24 12:15 PM EDT documented as of this encounter Care Teams Wooden Fence Erector Relationship Specialty Start Date End Date Mary Jo Kaplan DO [address] [place] [address] PCP - General Family Medicine 02/20/18 documented as of this encounter
--- OUTSIDE RECORDS SUMMARY | 2025-01-10 21:40 | XMS_ITS | Encounter Summary ---
Author Organization [facility] Address [address] [facility] 7t [place] [address] Care Team Providers Care Tooling Manager Name Role Phone Mary Jo Kaplan DO Primary Care Provider [phone] Encounter Details Date Type Department Care Team (Latest Contact Info) Description 09/25/2020 Abstract [facility] CONVERSIONS Dental, Provider, DDS Social History [...] Description 01/23/2025 10:30 AM EST Office Visit [facility] MEDICINE [address] [place] [address] Zarina Oliveira FNP [address] [place] [address] 05/09/2025 2:15 PM EDT Office Visit [facility] ADULT DENTAL [address] [place] [address] Kris Laly [address] [place] [address] documented as of this encounter Visit Diagnoses Not on filedocumented in this encounter Care Teams Tooling Manager Relationship Specialty Start Date End Date Mary Jo Kaplan DO [address] [place] [address] PCP - General Family Medicine 02/20/18 documented as of this encounter
--- OUTSIDE RECORDS SUMMARY | 2025-01-10 21:40 | XMS_ITS | Encounter Summary ---
Author Organization [employer] Address [address] [facility] 7t [place] [address] Care Team Providers Care System Integration Engineer Name Role Phone Mary Jo Kaplan DO Primary Care Provider + [phone] Reason for Visit * Reason Comments Med Change Request Encounter Details Date Type Department Care Team ([facility] st Contact Info) Description 10/10/2024 Refill [facility] MEDICINE [address] [place], [place] [phone] Mary Jo Kaplan DO [address] [place], [place] [phone] Social History Tobacco Use Types Packs/Day Years [...] Description 01/23/2025 10:30 AM EST Office Visit [facility] MEDICINE [address] [place] [address] Zarina Oliveira FNP [address] [place] [address] 05/09/2025 2:15 PM EDT Office Visit [facility] ADULT DENTAL [address] [place] [address] Toribio Poncearis [address] [place] [address] documented as of this encounter Visit Diagnoses Not on filedocumented in this encounter Additional Health Concerns Assessment Noted Time PHQ-9 Depression Total Score: 0 06/22/19 24 12:15 PM EDT documented as of this encounter Care Teams System Integration Engineer Relationship Specialty Start Date End Date Mary Jo Kaplan DO [address] [place] [address] PCP - General Family Medicine 02/20/18 documented as of this encounter
--- OUTSIDE RECORDS SUMMARY | 2025-01-10 21:40 | XMS_ITS | Encounter Summary ---
Author Organization [employer] Address [address] [facility] 7t [place] [address] Care Team Providers Care Customer Retention Representative Name Role Phone Mary Jo Kaplan DO Primary Care Provider [phone] Encounter Details Date Type Department Care Team (Late st Contact Info) Description 04/22/2022 Abstract [facility] ADULT DENTAL [address] [place] [address] Fernando Bay DDS [address] [place] [address] Social History Tobacco Use Types Packs/Day Years [...] Description 01/23/2025 10:30 AM EST Office Visit [facility] MEDICINE [address] [place] [address] Zarina Oliveira FNP [address] [place] [address] 05/09/2025 2:15 PM EDT Office Visit [facility] ADULT DENTAL [address] [place] [address] Laly Ponce [address] [place], [place] [phone] documented as of this encounter Visit Diagnoses Not on filedocumented in this encounter Care Teams Customer Retention Representative Relationship Specialty Start Date End Date Mary Jo Kaplan DO [address] [place] [address] PCP - General Family Medicine 02/20/18 documented as of this encounter
--- OUTSIDE RECORDS SUMMARY | 2025-01-10 21:40 | XMS_ITS | Encounter Summary ---
Author Organization [employer] Address [address] [facility] 7t [place] [address] Care Team Providers Care Cutter Woodwind Reeds Name Role Phone Mary Jo Kaplan DO Primary Care Provider [phone] Encounter Details Date Type Department Care Team (Late st Contact Info) Description 04/22/2022 Abstract [facility] ADULT DENTAL [address] [place] [address] [place] DDS [address] [place] [address] Social History Tobacco Use Types Packs/Day Years [...] Description 01/23/2025 10:30 AM EST Office Visit [facility] MEDICINE [address] [place] [address] Zarina Oliveira FNP [address] [place] [address] 05/09/2025 2:15 PM EDT Office Visit [facility] ADULT DENTAL [address] [place] [address] Laly Ponce [address] [place], [place] [phone] documented as of this encounter Visit Diagnoses Not on filedocumented in this encounter Care Teams Cutter Woodwind Reeds Relationship Specialty Start Date End Date Mary Jo Kaplan DO [address] [place] [address] PCP - General Family Medicine 02/20/18 documented as of this encounter
--- OUTSIDE RECORDS SUMMARY | 2025-01-10 21:41 | XMS_ITS | Patient Health Record ---
Author Organization Bradford Luna III, MD Address [address] [facility] [place] [address] Care Team Providers Care Marbleizing Machine Tender Name Role Phone RICHARD MERAZ Primary Care Provider Dr. 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 Problem Hypothyroidism (13624443) Hypothyroidis m, unspecified (E03.9) Active confirmed He has been compliant with his medical regimen. He appears to be euthyroid. Problem Obesity (779455732) Obesity, unspecified (E66.9) Active confirmed His body mass index is elevated. I recommended good nutrition, weight loss of 1/2 pound per week until her body mass index is below 25 and regular exercise.He has lost 5 pounds since his last visit. Problem Down syndrome (46116881) Down syndrome, unspecified (Q90.9) Active confirmed There is no sign of leukemia. 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 Vital Signs Heart Rate 59 /min 05/14/2024 Temperature 98.2 degrees Fahrenheit 05/14/2024 Blood pressure diastolic 66 mm Hg 05/14/2024 Height 61 in 05/14/2024 Blood pressure systolic 119 mm Hg 05/14/2024 Weight 164 lbs 05/14/2024 BMI 30.98 kg/m2 05/14/2024 Encounters Encounter Location Date Provider Diagnosis Bradford Luna III, MD [address] [place] [address] [place] [address] 05/14/2024 Bradford Luna Malignant neoplasm o f [...] CULTURE 04/22/2022 Next Appt Details Provider Name:Bradford Luna , 05/14/2025 03:30:00 PM, [address], [facility] [place], [address], Insurance Providers Payer Name Payer Address Payer Phone Subscriber Number Group Number Insured Name Patient Relationship to Insured Coverage Start Date Coverage End Date MEDICARE NGS [address] [place] [address] [id number] Jigar Ospina Self - patient is the insured 9 MEDICAID [place] [address] ROGELIO RAMIREZ [id number] Jigar Ospina Self - patient is the insured Medical (General) History Medical History History ICD Code Stage I seminoma right testis Down's syndrome hypothyroidism obesity Surgical History Surgery Date(Month/Year) right radical orchiectomy 05/2005
--- OUTSIDE RECORDS SUMMARY | 2025-01-10 21:41 | XMS_ITS | Clinical Summary ---
Author Organization [employer] Address [address] [facility] 7[address] [place] [address] Care Team Providers Care Activity Director Name Role Phone Mary Jo Kaplan DO Primary Care Provider [phone] Allergies No known active allergies Medications fluticasone [...] g 1 4 Active D3 50 MCG (1999 UT) tablet TAKE 1 TABLET BY MOUTH EVERY DAY 90 tablet 3 4 Active triamcinolone (Kenalog) 0.1 % ointment APPLY THIN COAT TO AFFECTED AREA TWICE A DAY 30 g 1 5 Active docusate sodium (Colace) 100 [...] and at bedtime (constipation). 473 mL 2 5 Active levothyroxine (Synthroid, Levoxyl) 88 MCG tabletIndication s:Hypothyroidism , unspecified type Take 1 tablet (88 mcg) by mouth Once per day. 90 tablet 2 Active Active Problems Problem Noted Date [...] 2014 -s/p optho eval MAR 2022 at [facility] for 2-yr f/u BMI 33.0-33.9,adult 11/25/2022 Nystagmus [...] Encounters Date Type Department Care Team Description 11/08/2024 Refill [facility] [address] [place] [address] Mary Jo Kaplan DO Hypothyroidism, unspecified type 11/07/2024 1:00 PM EDT Office Visit [facility] [address] [place] [address] Laly Ponce Tooth missing (Primary Dx); Dental plaque; Excessive attrition of teeth, limited to enamel; Retained deciduous tooth 10/10/2024 Refill [facility] [address] [place] [address] Mary Jo Kaplan DO from Last 3 [...] Description 01/23/2025 10:30 AM EST Office Visit [facility] [address] [place] [phone] Zarina Oliveira FNP [address] [place] [address] 05/09/2025 2:15 PM EDT Office Visit [facility] [address] [place] [address] Toribio Poncearis [address] [place] [address] Health Maintenance Due Date Last Done Comments Dental X-Ray: Full Mouth 1987 HIV Screening 1987 Disability Screening 1987 Alcohol/Substance Use Screening 1999 Family Planning (PISQ) 11/29/2002 HPV Vaccines (1 - 3-dose series) 11/29/2002 Hepatitis C Screening 11/29/2005 Depression Screening 06/21/2024 06/22/2023, 06/22/19 24 Dental Oral Exam 07/05/2024 01/05/2024, 09/2022, 04/22/2022 COVID-19 Vaccine ( season) 2024 09/14/2020, 08/07/2020 Influenza Vaccine (#1) 2024 0, 03/14/2018, 12/28/2016, Additional history exists SDOH Screening [...] Procedure Name Priority Date/Time Associated Diagnosis Comments US ABDOMEN COMPLETE Routine 11/08/2024 9 :28 AM EDT Abdominal bloating ORAL HYGIENE INSTRUCTIONS Routine 11/07/2024 1:00 PM [...] 10:23 AM EDT Abdominal bloating Chronic constipation PERIODIC ORAL EVALUATION - ESTABLISHED PATIENT Routine 01/05/2024 2:30 PM EST from Last 3 Months or Most Recently Relevant to Health Maintenance Results * US Abdomen Complete (11/08/2024 9:28 AM EDT) Anatomical Region Laterality Modality Abdomen Ultrasound 11/08/2024 9:28 AM EDT Narrative 11/08/2024 9:59 AM EDT [address] [address] Ultrasound Report Signed Patient: Jigar Yeboah MR#: [id number] 57 : 1985 Acct:[id number] Age/Sex: 38 / M ADM Date: 11/08/24 Loc: HO.US Attending Dr: Mary Jo Kaplan DO Ordering Physician: Mary Jo Kaplan DO Date of Service: 11/08/24 Procedure(s): US abdomen complete Accession Number(s): [id number] cc: Mary Jo Kaplan DO Reason for Exam: abd bloating EXAMINATION: US ABDOMEN HISTORY: abd bloating TECHNIQUE: Real-time grayscale ultrasound imaging of the abdomen was performed and images were reviewed. COMPARISON: There are no prior studies available for comparison. FINDINGS: Liver: The right lobe of the liver measures 13.5 cm in size. The left lobe of the liver measures 9.3 cm in size. The liver demonstrates normal homogeneous echotexture. No focal mass or intrahepatic biliary ductal dilatation is identified. There is normal hepatopedal flow in the portal vein. Gallbladder and biliary tree: The gallbladder is unremarkable, without evidence of calculi, wall thickening, or pericholecystic fluid. There is no sonographic Cameron sign. The common bile duct is normal in caliber measuring 3 mm. Kidneys: The right kidney measures 8.5 cm in length. The left kidney measures 9.8 cm in length. The kidneys are unremarkable, without evidence of masses, hydronephrosis, or calculi. Pancreas: The pancreas is obscured by bowel gas. Spleen: The spleen is normal in size and contour, measuring 6.2 cm in length. Abdominal aorta and inferior vena cava: The visualized portions of the abdominal aorta and inferior vena cava are normal in caliber. There is no free fluid in the abdomen. US/US abdomen complete IMPRESSION: The pancreas is not visualized. Otherwise unremarkable abdominal ultrasound. Electronically signed by: Bradford Aguila MD 11/08/2024 09:56 AM EDT Dictated By: Bradford Aguila MD Signed By: <Electronically signed by Bradford Aguila MD in OV> 11/08/2456 DD/ 7 TD/TT: 11/08/24936 Tobacco Blender: Procedure Note Donotuseinterpreter, Image - 11/08/2024 [place] [address] Ultrasound Report Signed Patient: Jigar YeboahMR#: [id number] 57 : 1985Acct:[id number] Age/Sex: 38 / MADM Date: 11/08/24 Loc: HO.US Attending Dr: Mary Jo Kaplan DO Ordering Physician: Mary Jo Kaplan DO Date of Service: 11/08/24 Procedure(s): US abdomen complete Accession Number(s): [id number] cc: Mary Jo Kaplan DO Reason for Exam: abd bloating EXAMINATION: US ABDOMEN HISTORY: abd bloating TECHNIQUE: Real-time grayscale ultrasound imaging of the abdomen was performed and images were reviewed. COMPARISON: There are no prior studies available for comparison. FINDINGS: Liver: The right lobe of the liver measures 13.5 cm in size. The left lobe of the liver measures 9.3 cm in size. The liver demonstrates normal homogeneous echotexture. No focal mass or intrahepatic biliary ductal dilatation is identified. There is normal hepatopedal flow in the portal vein. Gallbladder and biliary tree: The gallbladder is unremarkable, without evidence of calculi, wall thickening, or pericholecystic fluid. There is no sonographic Cameron sign. The common bile duct is normal in caliber measuring 3 mm. Kidneys: The right kidney measures 8.5 cm in length. The left kidney measures 9.8 cm in length. The kidneys are unremarkable, without evidence of masses, hydronephrosis, or calculi. Pancreas: The pancreas is obscured by bowel gas. Spleen: The spleen is normal in size and contour, measuring 6.2 cm in length. Abdominal aorta and inferior vena cava: The visualized portions of the abdominal aorta and inferior vena cava are normal in caliber. There is no free fluid in the abdomen. US/US abdomen complete IMPRESSION: The pancreas is not visualized. Otherwise unremarkable abdominal ultrasound. Electronically signed by: Bradford Aguila MD 11/08/2024 09:56 AM EDT Dictated By: Bradford Aguila MD Signed By: <Electronically signed by Bradford Aguila MD in OV> 11/08/2456 DD/ 7 TD/TT: 11/08/24936 Tobacco Blender: us Mary Jo Kaplan DO IMG US PROCEDURES Edited Res ult - Final * Vitamin D, 25-Hydroxy, Total, Immunoassay (10/31/2024 10:23 AM EDT) Vitamin D 25-OH Total 50.0 >30 ng/mL [facility] Comment: Health Based Reference Values*< 20 ng/mL [id number] ng/mL Insufficient> 30 ng/mL Sufficient*Samuel MAR. N [...] DO LAB BLOOD ORDERABLES Final R esult [facility] [address] [place] [address] [phone] * (ABNORMAL) CBC auto differential (10/31/2024 10:23 AM EDT) White Blood Count 4.2(L) 4.8 - 10.8 X10*3/uL [facility] Red Blood Count 5.16 4.60 - 5.80 X10*6/uL [facility] Hemoglobin 15.2 14.0 - 18.0 g/dl [facility] Hematocrit 45.7 42.0 - 52.0 % [facility] Mean Corpuscular Volume 88.6 80.0 - 98.0 fL [facility] Mean Corpuscular Hemoglobin 29.5 27.0 - 33.0 pg [facility] Mean Corpuscular HGB Conc 33.3 31.0 - 36.0 g/dl [facility] Red Cell Distribution Width 13.6 11.0 - 16.0 % [facility] Platelet Count 194 160 - 400 X10*3/uL [facility] Mean Platelet Volume 9.8 9.4 - 12.4 fL [facility] Neutrophils Percent Auto 55.0 45 - 73 % [facility] Imm Gran Pct Auto 0.2 0.0 - 0.4 % [facility] Lymphocytes Percent Auto 34.8 20 - 40 % [facility] Monocytes Percent Auto 7.4 2 - 11 % [facility] Eosinophils Percent Auto 1.4 0 - 4 % [facility] Basophils Percent Auto 1.2 0 - 2 % [facility] NRBC Pct Auto 0.0 0.0 - 0.2 /100WBC [facility] Neutrophils Absolute Auto 2.3 2.0 - 8.3 x10*3/uL [facility] Imm Gran Abs Auto 0.01 0.00 - 0.03 X10*3/uL [facility] Lymphocytes Absolute Auto 1.5 1.2 - 4.9 X10*3/uL [facility] Monocytes Absolute Auto 0.3 0.1 - 1.2 X10*3/uL [facility] Eosinophils Absolute Auto 0.1 0.0 - 0.4 X10*3/uL [facility] Basophils Absolute Auto 0.1 0.0 - 0.2 X10*3/uL [facility] NRBC Abs Auto 0.000 0.0 - 0.012 X10*3/uL [facility] Blood Venous blood specimen / Unknown 10/31/2024 10:23 AM EDT 10/31/2024 11:35 AM EDT Mary Jo Kaplan DO LAB BLOOD ORDERABLES Final R esult Performing Organization Address City/[facility]/ZIP Co de Phone Number [facility] [address] [place] [phone] * (ABNORMAL) TSH (10/31/2024 10:23 AM EDT) Thyroid Stimulating Hormone 0.26(L) 0.32 - 4.0 uIU/mL [facility] Comment:TSH 3rd Generation ( [employer]) Blood Venous blood specimen / Unknown 10/31/2024 10:23 AM EDT 10/31/2024 11:33 AM EDT Mary Jo Kaplan DO LAB BLOOD ORDERABLES Final R esult Performing Organization Address City/[facility] Co de Phone Number [facility] [address] [place] [phone] * T4, Free (10/31/2024 10:23 AM EDT) Free T4 (Free Thyroxine) 1.08 0.71 - 1.85 ng/dL [facility] Blood Venous blood specimen / Unknown 10/31/2024 10:23 AM EDT 10/31/2024 11:33 AM EDT Mary Jo Kaplan DO LAB BLOOD ORDERABLES Final R esult Performing Organization Address City/[facility] Co de Phone Number [facility] [address] [place] [phone] * Hemoglobin A1c (10/31/2024 10:23 AM EDT) Hemoglobin A1c 5.5 <6.0 % [facility] Comment:Hemoglobin A1C Refer ence Range Adults: 4.8 - 6.0 % Non diabetic: < 6.0 % Goal: < 7.0 %Additional Action Suggested: > 8.0 %Note: Hemoglobin A1c results are invalid for patients with abnormal amounts of HbF. Blood transfusions may impact the HbA1c concentration in the patient sample. Estimated Average Glucose 111 mg/dL [facility] Comment:eAG = Estimated ave rage glucose which is %A1C expressed asaverage glucose, using the formula of the [id number] Glucose study (ADAG), Diabetes Care, Vol.31,#8,2007 Blood Venous blood specimen / Unknown 10/31/2024 10:23 AM EDT 10/31/2024 11:35 AM EDT us Mary Jo Kaplan DO LAB BLOOD ORDERABLES Final R esult Performing Organization Address [facility] Co de Phone Number [facility] [address] [place] [phone] * Hepatic Function Panel (10/31/2024 10:23 AM EDT) Bilirubin, Total 0.5 0.0 - 1.0 mg/dL [facility] Bilirubin, Direct 0.1 0.0 - 0.5 mg/dL [facility] Aspartate Amino Transferase 23 5 - 37 U/L [facility] Alanine Aminotransferase 20 0 - 40 U/L [facility] Total Protein 7.2 6.5 - 8.0 g/dL [facility] Albumin Level 4.3 3.5 - 5.0 g/dL [facility] Alkaline Phosphatase 70 39 - 117 U/L [facility] Blood Venous blood specimen / Unknown 10/31/2024 10:23 AM EDT 10/31/2024 11:33 AM EDT us Mary Jo Kaplan DO LAB BLOOD ORDERABLES Final R esult Performing Organization Address [facility] Co de Phone Number [facility] [address] [place] [phone] * (ABNORMAL) Lipid Panel, Standard (10/31/2024 10:23 AM EDT) Triglycerides 107 <150 mg/dL [facility] Comment:Desirable Triglyceri de: less than 150 mg/dLBorderline High Triglyceride 150-199 mg/dLHigh Triglyceride: 200-499 mg/dLVery High Triglyceride: greater than or equal to 5OO mg/dL Cholesterol 179 <200 mg/dL [facility] Comment:Desirable Cholestero l: less than 200 mg/dLBorderline High Cholesterol: 200-239 mg/dLHigh Cholesterol: greater than 239 mg/dL LDL Cholesterol Calculated 120(H) <100 mg/dL [facility] Comment:Desirable LDL: less than 100 mg/dLNear Optimal/Above Optimal LDL: 110- 129 mg/dLBorderline High LDL: 130-159 mg/dLHigh LDL: 160-189 mg/dLVery High LDL: greater than or equal to 190 mg/dL HDL Cholesterol 38(L) >40 mg/dL [facility] Comment:Desirable HDL: great er than 40 mg/dL Note: This HDL assay may give artificially low results in patients with liver disease. Blood Venous blood specimen / Unknown 10/31/2024 10:23 AM EDT 10/31/2024 11:33 AM EDT us Mary Jo Kaplan DO LAB BLOOD ORDERABLES Final R esult Performing Organization Address City/[facility]/ZIP Co de Phone Number [facility] [address] [place] [phone] * (ABNORMAL) Basic Metabolic Panel (10/31/2024 10:23 AM EDT) Sodium 140 135 - 145 mmol/L [facility] Potassium 4.0 3.3 - 5.1 mmol/L [facility] Chloride 102 96 - 108 mmol/L [facility] Carbon Dioxide 31(H) 22 - 29 mmol/L [facility] Anion Gap 11(L) 12 - 20 [facility] Urea Nitrogen (BUN) 13 9 - 16 mg/dL [facility] Creatinine, Serum 0.99 0.5 - 1.4 mg/dL [facility] Estimated Glomerular Filt Rate >60 [facility] Comment:Chronic Kidney Disea se: Estimated GFR < 60 mL/min/1.02x5Kgxlrn Kidney Disease: Estimated GFR < 15 mL/min/1.73m2 Glucose 94 60 - 115 mg/dL [facility] Calcium 9.1 8.4 - 10.2 mg/dL [facility] Blood Venous blood specimen / Unknown 10/31/2024 10:23 AM EDT 10/31/2024 11:33 AM EDT us Mary Jo Kaplan DO LAB BLOOD ORDERABLES Final R esult [facility] [address] [place] [phone] from Last 3 [place] [id number] [facility] ST[facility] ADULT Care Teams Activity Director Relationship Specialty Start Date End Date Mary Jo Kaplan DO [address] [place] [phone] PCP - General Family Medicine 02/20/18
--- OUTSIDE RECORDS SUMMARY | 2025-01-10 21:41 | XMS_ITS | Encounter Summary ---
Author Organization [employer] Address [address] [facility] [address] [place] [address] Care Team Providers Care Harness Placer Name Role Phone Mary Jo Kaplan DO Primary Care Provider + [phone] Reason for Visit * Reason Comments Med Change Request Encounter Details Date Type Department Care Team ([facility] st Contact Info) Description 05/17/2024 Refill [facility] [address] [place], [place] [phone] Mary Jo Kaplan DO [address] [place], [place] [phone] Constipation, unspecified constipation type Social History Tobacco [...] Description 01/23/2025 10:30 AM EST Office Visit [facility] [address] [place] [address] Zarina Oliveira FNP [address] [place] [address] 05/09/2025 2:15 PM EDT Office Visit [facility] [address] [place] [address] Kris, Laly [address] [place] [address] documented as of this encounter Visit Diagnoses Diagnosis Constipation, unspecified constipation type documented in this encounter Additional Health Concerns Assessment Noted Time PHQ-9 Depression Total Score: 0 06/22/19 24 12:15 PM EDT documented as of this encounter Care Teams Harness Placer Relationship Specialty Start Date End Date Mary Jo Kaplan DO [address] [place] [address] PCP - General Family Medicine 02/20/18 documented as of this encounter
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
[2025-01-10 22:57] VITALS: BP 113/68; PULSE 54; RESP 16; TEMP 37; O2SAT 97
[2025-01-10 23:08] VITALS: BP 113/68; PULSE 54; RESP 16; TEMP 37; O2SAT 97
== END 2025-01-10 23:09 | disposition home or self-care (01) ==
PROVIDERS: Emergency Provider Emergency Medicine; PCP Family Medicine
DX: S13.4XXA Sprain of ligaments of cervical spine, initial encounter (principal); M54.50 Low back pain, unspecified; M54.2 Cervicalgia; V43.62XA Car passenger injured in collision with other type car in traffic accident, initial encounter; Y93.9 Activity, unspecified; Y92.410 Unspecified street and highway as the place of occurrence of the external cause; Y99.8 Other external cause status
CPT/HCPCS: 96372; 99283; 99284; J1885

== ENCOUNTER 2025-01-23 11:51 | Outpatient (REF) | payer MEDICARE, MEDICAID, SELFPAY ==
[2025-01-23 13:24] LABS: MANUAL DIFF FLAG NO
[2025-01-23 13:41] LABS: Hematocrit 46.3 % (42.0-52.0); Hemoglobin 15.0 g/dl (14.0-18.0); Imm Gran Abs Auto 0.02 X10*3/uL (0.00-0.03); Imm Gran Pct Auto 0.4 % (0.0-0.4); Lymphocytes Absolute Auto 1.7 X10*3/uL (1.2-4.9); Mean Corpuscular HGB Conc 32.4 g/dl (31.0-36.0); Mean Corpuscular Hemoglobin 29.2 pg (27.0-33.0); Mean Corpuscular Volume 90.3 fL (80.0-98.0); NRBC Abs Auto 0.000 X10*3/uL (0.0-0.012); NRBC Pct Auto 0.0 /100WBC (0.0-0.2); Platelet Count 189 X10*3/uL (160-400); Red Blood Count 5.13 X10*6/uL (4.60-5.80); White Blood Count 5.0 X10*3/uL (4.8-10.8)
[2025-01-23 14:19] LABS: Alanine Aminotransferase 23 U/L (0-40); Albumin Level 4.4 g/dL (3.5-5.0); Alkaline Phosphatase 70 U/L (39-117); Anion Gap 10 (12-20); Aspartate Amino Transferase 25 U/L (5-37); Blood Urea Nitrogen 16 mg/dL (9-16); Calcium 8.9 mg/dL (8.4-10.2); Carbon Dioxide 31 mmol/L (22-29); Chloride 104 mmol/L (96-108); Estimated Glomerular Filt Rate > 60; Potassium 3.9 mmol/L (3.3-5.1); Sodium 141 mmol/L (135-145); Total Protein 7.5 g/dL (6.5-8.0)
[2025-01-23 14:38] LABS: Thyroid Stimulating Hormone 1.01 uIU/mL (0.32-4.0)
== END 2025-01-23 11:52 | disposition home or self-care (01) ==
LOC: HO.HHCL 11:51
PROVIDERS: PCP Family Medicine; Visit Provider Nurse Practitioner Family
DX: I95.9 Hypotension, unspecified (principal); E03.9 Hypothyroidism, unspecified
CPT/HCPCS: 36415; 80053; 84443; 85025